=== PATIENT | male | born 1980 | race Caucasian/White ===

== ENCOUNTER 2017-03-06 12:51 | Emergency (ER) | payer OTHER ==
[~2017-03-06] VITALS: Ht 172.7 cm; Wt 78.4 kg
[~2017-03-06 12:51] MED LIST: /ONDA4TA PO; ACET65TA OR; CLARITIN PO; TYL PO
[2017-03-06] MEDS ORDERED: IBUP-1022 PO (12:58)
[2017-03-06] MEDS ORDERED: KETOROLAC 60 MG/2 ML VIAL (J1885) IM ONE (13:45)
[2017-03-06] MEDS ORDERED: VALI10TA PO (14:36)
[2017-03-06] MEDS ORDERED: ULTR50TA8 PO (14:36)
[2017-03-06 14:44] VITALS: BP 135/78
--- NOTE | 2017-03-06 14:56 | REP ---
LEFT HIP, TWO VIEWS: HISTORY: Trauma. The patient is status post left total hip replacement. There is no acute fracture or dislocation. IMPRESSION: The patient is status post left total hip replacement. Signed by Jose Antonio Shah MD 03/06/2017 02:57 P
== END 2017-03-06 15:05 | disposition home or self-care (01) ==
LOC: M ED 13:49
DX: S76.012A Strain of muscle, fascia and tendon of left hip, initial encounter (principal); X50.0XXA Overexertion from strenuous movement or load, initial encounter; Y92.009 Unspecified place in unspecified non-institutional (private) residence as the place of occurrence of the external cause; Y93.89 Activity, other specified; Y99.8 Other external cause status; J45.909 Unspecified asthma, uncomplicated; J44.9 Chronic obstructive pulmonary disease, unspecified; Z96.642 Presence of left artificial hip joint; F17.210 Nicotine dependence, cigarettes, uncomplicated; Z88.5 Allergy status to narcotic agent

== ENCOUNTER → 2017-05-27 | Outpatient (CLI) | payer OTHER ==
[~2017-05-27] MED LIST changes: +IBUP-1022 PO; +ULTR50TA8 PO; +VALI10TA PO
--- NOTE | 2017-05-27 12:10 | REP ---
Clinical: Chronic pain and swelling. Technique: AP, lateral, bilateral oblique views of the of the left first digit. Findings: Mild age-related changes at the metacarpal phalangeal joint include subtle subchondral sclerosis and cortical irregularity. Oblique and lateral views best demonstrates soft tissue swelling suggested underlying the distal phalanx without subcutaneous emphysema or radiodense foreign body. No acute fracture or dislocation. Impression: 1. Age-related changes at the MCP joint. 2. Cannot exclude mild swelling underlying the distal phalanx without subcutaneous emphysema or foreign body identified. Signed by Pierre Medrano MD 05/27/2017 12:01 P
== END ==
LOC: M RAD 11:31
PROVIDERS: ATTEND Physician Assistant Medical
DX: M18.12 Unilateral primary osteoarthritis of first carpometacarpal joint, left hand (principal)

== ENCOUNTER 2017-08-29 01:04 | Observation (INO) | payer OTHER ==
[~2017-08-29] VITALS: Ht 175.3 cm; Wt 68.0 kg
[2017-08-29] MEDS ORDERED: HALOPERIDOL 5 MG/ML VIAL (J1630) IV STA (02:14)
[2017-08-29] MEDS ORDERED: diphenhydrAMINE INJ 50MG/ML VIAL (J1200) IV STA (02:14)
[2017-08-29] MEDS ORDERED: NS 1,000 ML IV ONE (02:15)
[2017-08-29] MEDS ORDERED: KETOROLAC 30 MG/ML VIAL (J1885) IV ONE (02:15)
[2017-08-29 02:26] LABS: BASO # 0.1 10^3/uL (0.0-0.2); BASO % 0.4 % (0.0-1.0); EOS # 0.1 10^3/uL (0.0-0.50); EOS % 0.5 % (0.0-3.0); IMMATURE GRANULOCYTE % 0.6 % (0-0); LYMPH % 9.9 % (24.0-44.0); MEAN CORPUSCULAR HEMOGLOBIN 31.9 pg (27.0-33.0); MEAN CORPUSCULAR HGB CONC 35.4 g/dl (32.0-36.5); MEAN CORPUSCULAR VOLUME 90.4 fl (80.0-96.0); MONO # 0.8 10^3/uL (0.0-0.8); MONO % 3.9 % (0.0-5.0); NEUTROPHILS # 16.9 10^3/uL (1.8-7.7); NEUTROPHILS % 84.7 % (36.0-66.0); PLATELET COUNT, AUTOMATED 215 10^3/uL (150-450); RED CELL DISTRIBUTION WIDTH 11.8 % (11.5-14.5); WHITE BLOOD COUNT 19.9 10^3/uL (4.0-10.0)
[2017-08-29 02:58] LABS: ALBUMIN 4.1 GM/DL (3.2-5.2); ALBUMIN/GLOBULIN RATIO 1.41 (1.00-1.93); ALKALINE PHOSPHATASE 65 U/L (45-117); ALT/SGPT 25 U/L (12-78); ANION GAP 11 MEQ/L (8-16); AST/SGOT 27 U/L (7-37); BILIRUBIN,DIRECT 0.1 MG/DL (0.0-0.2); BILIRUBIN,TOTAL 0.6 MG/DL (0.2-1.0); BLOOD UREA NITROGEN 8 MG/DL (7-18); CALCIUM LEVEL 9.2 MG/DL (8.5-10.1); CARBON DIOXIDE LEVEL 23 MEQ/L (21-32); CHLORIDE LEVEL 106 MEQ/L (98-107); CREATININE FOR GFR 0.82 MG/DL (0.70-1.30); GLOMERULAR FILTRATION RATE > 60.0 (>60); GLUCOSE, FASTING 106 MG/DL (70-105); POTASSIUM SERUM 3.9 MEQ/L (3.5-5.1); SODIUM LEVEL 140 MEQ/L (136-145)
[2017-08-29] MEDS ORDERED: TAMSULOSIN 0.4 MG CAP PO ONE (03:00)
--- NOTE | 2017-08-29 04:00 | REPUSA ---
CLINICAL HISTORY: Abdominal pain. TECHNIQUE: Multiple axial, sagittal and coronal CT images were obtained through the abdomen and pelvi s without administration of oral or IV contrast material. COMMENTS: Comparison to prior exam performed on 08/27/2015. 4 mm obstructing stone of the left ureter at L4 level. Mild left hydroureteronephrosis. Not present o n prior exam. Bilateral nonobstructing renal stones ranging between 2 and 5 mm. Not present on prior exam. The liver is of uniform attenuation without mass or defect. There is no intra or extrahepatic biliary ductal dilatation. The spleen is normal. The gallbladder is within normal limits. The pancreas is of normal contour and attenuation characteristics. There is no evidence of adrenal mass. There is no evidence for appendicitis. There is no bowel wall thickening. No evidence for small or la rge bowel obstruction. There is no evidence of abdominal ascites or lymphadenopathy. There is no evidence of intrinsic or extrinsic bladder mass. There is no pelvic ascites or lymphadeno justyna. Left hip arthroplasty. Metallic prosthesis is in good position. Images of the lung bases show no evidence of pleural or parenchymal mass. There are no pleural effusi ons. The bony structures are free of lytic or blastic lesions. IMPRESSION: Comparison to prior exam performed on 08/27/2015. 4 mm obstructing stone of the left ureter at L4 level. Mild left hydroureteronephrosis. Not present o n prior exam. Bilateral nonobstructing renal stones ranging between 2 and 5 mm. Not present on prior exam. Thank you for your kind referral of this patient.
[2017-08-29] MEDS ORDERED: HYDROmorphone HCL 1 MG/ML SYRINGE (J1170) IV ONE (04:15)
[2017-08-29] MEDS ORDERED: CIPROFLOXACIN 400 MG in APPROPRIATE DILUENT 1 EA IV ONE (04:15)
[2017-08-29] MEDS ORDERED: METOCLOPRAMIDE INJ 10MG/2ML VIAL (J2765) IV PRN (06:30)
[2017-08-29] MEDS ORDERED: D5W/0.9% SODIUM CHLORIDE 1,000 ML IV SCH (06:30)
[2017-08-29] MEDS ORDERED: D5W/0.45% SODIUM CHLORIDE 1,000 ML IV SCH (08:12)
[2017-08-29] MEDS ORDERED: HYDROmorphone HCL 1 MG/ML SYRINGE (J1170) IV PRN (08:15)
[2017-08-29 08:30] VITALS: BP 128/73
[2017-08-29] MEDS: D5W/0.45% SODIUM CHLORIDE 1,000 ML IV SCH ×3 (08:45→22:00)
[2017-08-29] MEDS ORDERED: TAMSULOSIN 0.4 MG CAP PO SCH (09:00)
[2017-08-29] MEDS: ONDANSETRON 4MG/2ML VIAL (J2405) IV PRN (09:35)
[2017-08-29] MEDS: KETOROLAC 30 MG/ML VIAL (J1885) IV PRN ×2 (09:36→17:57)
[2017-08-29] MEDS: HYDROmorphone HCL 1 MG/ML SYRINGE (J1170) IV PRN ×4 (11:48→23:53)
--- NOTE | 2017-08-29 12:06 | REP ---
REASON FOR EXAM: History of renal calculi. COMPARISON: 09/06/2015. FINDINGS: KUB shows the intestinal gas pattern to be nonspecific. The organ silhouettes insofar as delineated are unremarkable. There is no evidence of free intraperitoneal air. There is a calcification seen lateral to the superior aspect of the L3 vertebral body on the left. This could represent an intraureteral calculus. It was not present on the prior exam. IMPRESSION: Nonspecific. Signed by Arie Boyd DO 08/29/2017 09:46 A
[2017-08-29 16:00] VITALS: BP 138/82
[2017-08-29 19:03] VITALS: BP 138/71
[2017-08-29 22:00] VITALS: BP 112/68
[2017-08-30] VITALS (7 sets, daily range): BP systolic 120–161; BP diastolic 59–80
[2017-08-30] MEDS: KETOROLAC 30 MG/ML VIAL (J1885) IV PRN ×3 (01:50→15:23)
[2017-08-30] MEDS: HYDROmorphone HCL 1 MG/ML SYRINGE (J1170) IV PRN ×5 (04:39→17:32)
[2017-08-30] MEDS: D5W/0.45% SODIUM CHLORIDE 1,000 ML IV SCH ×4 (04:39→22:46)
[2017-08-30] MEDS ORDERED: D5W/0.45% SODIUM CHLORIDE 1,000 ML IV SCH (08:11)
[2017-08-30] MEDS: TAMSULOSIN 0.4 MG CAP PO SCH (08:42)
[2017-08-30] MEDS: ONDANSETRON 4MG/2ML VIAL (J2405) IV PRN (08:42)
--- NOTE | 2017-08-30 12:31 | HPE ---
DATE OF ADMISSION: 08/29/2017 REASON FOR ADMISSION: 4 mm left ureteral stone with hydronephrosis and unremitting pain despite pain medication in the emergency room. HISTORY OF PRESENT ILLNESS: The patient is a 37-year-old gentleman who comes to the emergency room after having severe left hip pain when he had slipped on the ice. Originally, he thought that he hurt his hip only, but the pain began radiating up his back. He began having left upper back pain with vomiting and chills with teeth chattering. A CT scan of the abdomen and pelvis was done on 08/29/2017 and this showed a 4 mm obstructing stone in the left ureter at the L4 level with mild left hydroureteronephrosis. He also had bilateral nonobstructing renal stones ranging from 2 to 5 mm. His white blood count was elevated at 19.9 , but he was afebrile and a urinalysis (UA) showed no white blood cells. The patient did have a history of a kidney stone when he was 12 years of age but , has not had any stones since. He has had problems with urinary urgency and urge incontinence now for many years. He only voids three times during the day and normally does not have significant nocturia. He does drink one to two cups of coffee in the morning. He does not always feel like he empties his bladder completely. He has never wet the bed and he denies any neurologic symptoms such as tingling, loss of balance, weakness or anything else. A neurologic review was completely normal. PAST MEDICAL HISTORY: Allergic rhinitis. PAST SURGICAL HISTORY: 1. Left knee surgery in 2001. 2. Left hip replacement. 3. Arthroscopic knee surgery in 2014. 4. Inguinal hernia repair in 2016. MEDICATIONS: He does not take any medications at home. ALLERGIES: - MORPHINE causes a headache, but he has been getting hydromorphone without any problems SOCIAL HISTORY: He smokes a half pack of cigarettes a day. He has a girlfriend who he lives with. He drinks alcohol rarely. FAMILY HISTORY: His father has diabetes and high blood pressure with heart disease and his mother has diabetes and a history of melanoma. PHYSICAL EXAMINATION: He is afebrile. His blood pressure is 136/74. His pulse is 67. He is alert and oriented times three. His head is normocephalic, atraumatic. His trachea is midline. He has no significant supraclavicular or cervical adenopathy. His heart has a regular rate and rhythm. His lungs are clear to auscultation and percussion. He has no true costovertebral angle (CVA) tenderness today. He does have point tenderness on his back on the lower back towards midline, which is a muscle in spasm. His extremities show no cyanosis, clubbing or edema. LABORATORY DATA: White blood count is elevated at 19.9. His hemoglobin and hematocrit (H and H) is 14.6/41.3. His BUN is 8 and his creatinine is 0.2. His glucose is 106. A CT scan of the abdomen and pelvis on 08/29/2017 showed a 4 mm obstructing stone in the left ureter at the L4 level with mild left hydronephrosis. There are bilateral nonobstructing renal stones ranging from 2-5 mm that had not been present on a prior exam. There were no other significant abnormalities appreciated. DISCUSSION: I discussed these findings with Jose. At this point, they do not believe that his left hip is an issue. He has been able to walk without any problems and feels that it is not left hip pain. He has received multiple courses of Dilaudid in the emergency room and is still unable to tolerate the pain well, although when I see him he seems extremely comfortable. After discussing all different options, alternatives, risks, and benefits, it was decided to admit him for IV hydration, pain management, and to see whether he is able to pass the stone spontaneously. We discussed that if the pain continues and he is unable to pass the stone, that we will plan on bringing him to the operating room tomorrow, and he is in agreement with this. We discussed if we go to the operating room we will plan cystoscopy, left ureteroscopy, left stone manipulation with either laser and/or a stone basket, and the placement of a left ureteral stent. We discussed exactly how this is done and what to expect both pre and post procedurally. We discussed that the stent will need to be removed. At this point, we will wait on getting consent. IMPRESSION: 1. Left mid ureteral stone with severe unremitting pain despite Dilaudid. 2. Urinary urgency and urge incontinence for many years with a negative Neurologic ROS of ? etiology 3. Left back spasm after a fall on the ice in a patient with a left hip replacement, but he denies any significant left hip pain at this time. 4. Smoker, but no other significant medical history. PLAN: Admit for observation status and continue IV hydration, pain medication, and antinausea medication. If he is unable to pass the stone spontaneously, we will plan on going to the operating room tomorrow for surgical management. -Check PVR -Pt will need outpatient f/u for urinary urgency and urge incontinence. Some behavioral things discussed. YRIS
[2017-08-30] MEDS ORDERED: ceFAZolin 2 GM/D5W 50 ML IV BAG (J0690 PER 500MG) As Ordered ONE (19:02)
[2017-08-30] MEDS ORDERED: CONRAY-60 60% 50ML VIAL (Q9961) As Ordered ONE (19:02)
[2017-08-30] MEDS ORDERED: dexameTHASONE 4 MG/ML 1ML VIAL (J1100) As Ordered ONE (19:22)
[2017-08-30] MEDS ORDERED: ONDANSETRON 4MG/2ML VIAL (J2405) As Ordered ONE (19:22)
[2017-08-30] MEDS ORDERED: PROPOFOL 200 MG/20 ML VIAL As Ordered ONE (19:22)
[2017-08-30] MEDS ORDERED: fentaNYL 250 MCG/5 ML INJECTION (J3010) As Ordered ONE (19:22)
[2017-08-30] MEDS ORDERED: MIDAZOLAM INJ 2 MG/2 ML VIAL (J2250) As Ordered ONE (19:22)
[2017-08-30] MEDS ORDERED: ETOMIDATE INJ 20MG/10ML VIAL As Ordered ONE (20:14)
[2017-08-30] MEDS ORDERED: fentaNYL 100 MCG/2 ML INJECTION (J3010) As Ordered ONE ×2 (20:55→20:56)
[2017-08-30] MEDS ORDERED: OXYC1TAB23 PO (21:36)
[2017-08-30] MEDS ORDERED: PHEN-500 PO (21:36)
[2017-08-30] MEDS ORDERED: LR 1,000 ML IV SCH (21:45)
[2017-08-30] MEDS ORDERED: METOCLOPRAMIDE INJ 10MG/2ML VIAL (J2765) IV PRN (21:45)
[2017-08-30] MEDS ORDERED: PERCOCET 5MG/325MG TAB PO PRN (21:45)
[2017-08-30] MEDS ORDERED: ONDANSETRON 4MG/2ML VIAL (J2405) IV PRN (21:45)
[2017-08-30] MEDS ORDERED: MEPERIDINE INJ 25 MG/ML VIAL (J2175) IV PRN (21:45)
[2017-08-30] MEDS ORDERED: fentaNYL 100 MCG/2 ML INJECTION (J3010) IV PRN (21:45)
[2017-08-30] MEDS ORDERED: PERCOCET 5MG/325MG TAB As Ordered ONE (21:49)
[2017-08-30] MEDS: PHENAZOPYRIDINE 100 MG TAB PO SCH (22:46)
[2017-08-30] MEDS: PERCOCET 5MG/325MG TAB PO PRN (23:14)
[2017-08-31 00:30] VITALS: BP 138/74
[2017-08-31] MEDS: KETOROLAC 30 MG/ML VIAL (J1885) IV PRN ×2 (00:40→06:45)
[2017-08-31 01:30] VITALS: BP 119/70
[2017-08-31 02:30] VITALS: BP 132/78
[2017-08-31 03:30] VITALS: BP 125/89
[2017-08-31] MEDS: PERCOCET 5MG/325MG TAB PO PRN ×2 (05:02→09:11)
[2017-08-31] MEDS: D5W/0.45% SODIUM CHLORIDE 1,000 ML IV SCH (05:07)
[2017-08-31 06:00] VITALS: BP 130/70
[2017-08-31] MEDS: TAMSULOSIN 0.4 MG CAP PO SCH (08:52)
[2017-08-31] MEDS: PHENAZOPYRIDINE 100 MG TAB PO SCH (08:52)
[2017-08-31] MEDS ORDERED: INFLUENZA QUADRIVALENT PF VACCINE 0.5ML SYRINGE (90686) IM ONE (09:00)
[2017-08-31 10:00] VITALS: BP 118/70
--- NOTE | 2017-08-31 11:54 | RO ---
DATE OF PROCEDURE: 08/30/2017 PREOPERATIVE DIAGNOSIS: Left ureteral stone. POSTOPERATIVE DIAGNOSIS: Left ureteral stone. PROCEDURE: Cystoscopy, left ureteroscopy, left laser lithotripsy and left ureteral stent placement. SURGEON: Dr. Makenzie Panda SERVICE ATTENDANT: ANESTHESIA: General. MEDICATIONS: Ancef 2 grams preoperatively. DRAINS: #7-Thai universal double-J ureteral stent. FINDINGS: Stone was pushed into the lower pole calyx of the kidney, laser lithotripsy was done. INDICATIONS FOR PROCEDURE: The patient is a 37-year-old gentleman who was found to have a left 4 mm ureteral stone at L3. He required hospitalization for pain management but continued to have pain and was unable to pass the stone. At this point, it was decided to bring him to the operating room for further surgical management. All different options, alternatives, risks, and benefits were discussed and informed consent was obtained. Informed consent was obtained in both verbal and written form. DESCRIPTION OF PROCEDURE: The patient was brought into the operating room. Sequential compression devices were in place and general anesthesia was induced. He was placed in the lithotomy position and careful attention was paid that his pressure points were well padded and protected. He was prepped and draped in the usual fashion. Next a #21-Thai rigid cystoscope was inserted. The urethra was noted to be open without any evidence of lesions or strictures. Prostatic urethra did not show obstruction. Upon entering the bladder, both ureteral orifices were seen. There was no evidence of stones, erythematous patches, lesions or other significant abnormalities. At this point, I attempted to place a wire in the left ureteral orifice, but it would not go far because it felt like the stone was there. A retrograde pyelogram was then done and it did show that the stone was stuck in the distal ureter. I then placed a rigid ureteroscope and the stone unfortunately popped all the way back up into the kidney. I was then able to place a wire and used this as a safety and then a second wire. I went in with a flexible ureteroscope and found the stone in a lower pole calyx. I was able use laser lithotripsy and break this into at least three different small fragments. At this point, I a attempted to place a #6-Thai Crawford stent, but I was having difficulty placing it over the wire and we could not find a 0.035 guidewire so I increased the stent size to a #7-Thai and finally was able to get this over the wire. The stent was seen up in the left collecting system and down in the bladder. The patient tolerated the procedure well and was returned to the recovery room in stable condition.
--- NOTE | 2017-09-01 01:10 | ECGEPIP ---
Stationary ECG Study [facility] Test Date: 2017-08-29 Pat Name: SUSHMA CESPEDES Department: Room: [place] [address] Gender: M Fish Packer: AYAN : 1980 Requested By: GAIL Flores Order Number: [id number] Reading MD: Kamar Wick Measurements Intervals [place] Rate: 60 P: 76 NJ: 164 QRS: 61 QRSD: 82 T: 63 QT: 432 QTc: 433 Interpretive Statements SINUS RHYTHM WITH SINUS ARRHYTHMIA No prior tracing in the system Electronically Signed On 09-01-2017 1:09:47 EST by Kamar Wick
== END 2017-08-31 11:31 | disposition home or self-care (01) ==
LOC: M ED 01:04 → M ED INP 01:05 → M PED 08:30 → M MSPAV 18:20
PROVIDERS: ADMIT Specialist; ATTEND Specialist
DX: N13.2 Hydronephrosis with renal and ureteral calculous obstruction (principal); M62.830 Muscle spasm of back; M25.552 Pain in left hip; N39.41 Urge incontinence; F17.210 Nicotine dependence, cigarettes, uncomplicated; Z88.5 Allergy status to narcotic agent; Z23 Encounter for immunization
CPT/HCPCS: 52356; 74000; 74176; 74420; 80048; 80076; 81001; 83690; 85025; 87086; 90686; 93000; 99284; C1758; C1769; C1894; C2617; J0690; J0744; J1100; J1170; J1200; J1630; J1885; J2250; J2405; J3010; Q9961

== ENCOUNTER 2017-09-10 16:24 | Emergency (ER) | payer OTHER ==
[~2017-09-10] VITALS: Ht 175.3 cm; Wt 65.9 kg
[~2017-09-10 16:24] MED LIST changes: +OXYC1TAB23 PO; +PHEN-500 PO
[2017-09-10] MEDS ORDERED: CIPR-249 PO (16:38)
[2017-09-10] MEDS ORDERED: ONDANSETRON 4MG/2ML VIAL (J2405) IV ONE (17:00)
[2017-09-10] MEDS ORDERED: KETOROLAC 30 MG/ML VIAL (J1885) IV ONE (17:00)
[2017-09-10 17:03] LABS: BASO # 0.1 10^3/uL (0.0-0.2); BASO % 0.6 % (0.0-1.0); EOS # 0.2 10^3/uL (0.0-0.50); EOS % 1.6 % (0.0-3.0); IMMATURE GRANULOCYTE % 0.4 % (0-0); LYMPH % 22.2 % (24.0-44.0); MEAN CORPUSCULAR HEMOGLOBIN 31.4 pg (27.0-33.0); MEAN CORPUSCULAR HGB CONC 34.4 g/dl (32.0-36.5); MEAN CORPUSCULAR VOLUME 91.4 fl (80.0-96.0); MONO % 7.3 % (0.0-5.0); NEUTROPHILS # 9.2 10^3/uL (1.8-7.7); NEUTROPHILS % 67.9 % (36.0-66.0); PLATELET COUNT, AUTOMATED 357 10^3/uL (150-450); RED CELL DISTRIBUTION WIDTH 12.5 % (11.5-14.5); WHITE BLOOD COUNT 13.5 10^3/uL (4.0-10.0)
[2017-09-10 17:30] LABS: ANION GAP 8 MEQ/L (8-16); BLOOD UREA NITROGEN 10 MG/DL (7-18); CALCIUM LEVEL 9.2 MG/DL (8.5-10.1); CARBON DIOXIDE LEVEL 29 MEQ/L (21-32); CHLORIDE LEVEL 106 MEQ/L (98-107); CREATININE FOR GFR 0.77 MG/DL (0.70-1.30); GLOMERULAR FILTRATION RATE > 60.0 (>60); GLUCOSE, FASTING 99 MG/DL (70-105); POTASSIUM SERUM 4.1 MEQ/L (3.5-5.1); SODIUM LEVEL 143 MEQ/L (136-145)
[2017-09-10] MEDS ORDERED: NS 1,000 ML IV ONE (18:00)
--- NOTE | 2017-09-10 18:48 | REP ---
RENAL ULTRASOUND: Real-time sonographic evaluation of the kidneys are performed and demonstrates both kidneys to be normal in size and echotexture, right kidney measuring 12.4 x 5.6 x 3.4 cm and left kidney 13.4 x 4.9 x 6.7 cm. There is no hydronephrosis on the right. There is mild hydronephrosis on the left. I see no other significant abnormalities. Urinary bladder is not distended and not evaluated. IMPRESSION: Mild left hydronephrosis. Signed by Blanco Moran MD 09/10/2017 08:45 P
[2017-09-10 18:59] LABS: MUCUS, URINE RFX LARGE (NEGATIVE); SQUAM EPITHELIAL CELL UR AURFX 0 /HPF (0-6)
[2017-09-10] MEDS: HYDROmorphone HCL 1 MG/ML SYRINGE (J1170) IV PRN ×2 (19:04→20:25)
--- NOTE | 2017-09-10 20:00 | REPUSA ---
CT of the abdomen and pelvis without contrast Clinical statement: Pain. Technique: Multiple axial CT images were obtained from the base of the lungs to the floor of the pelv is utilizing 5 mm axial slices without administration of contrast. Coronal and sagittal reconstructio ns were also obtained. Comparison: 08/29/2017. Findings: Chest: The visualized lung bases are clear. Abdomen: The kidneys are normal in size bilaterally. There is no significant change in moderate left- sided hydronephrosis and hydroureter. A 4 mm stone remains in the left ureterovesical junction. Tiny nonobstructing stones are seen in the kidneys bilaterally as well. The liver, spleen, pancreas, gallb ladder and adrenal glands are unremarkable. The aorta demonstrates normal caliber and contour. There is no abdominal lymphadenopathy or ascites. Pelvis: The bowel is unremarkable, with no obstructive or inflammatory changes. The urinary bladder i s within normal limits. There is no pelvic lymphadenopathy or ascites. The other pelvic structures ap pear unremarkable. Bones: There are no suspicious osseous abnormalities seen. The left hip arthroplasty is intact. Impression: No significant change in left-sided hydronephrosis and hydroureter. 4 mm obstructing ston e remains at the left ureterovesical junction.
[2017-09-10] MEDS ORDERED: PERC5TAB12 PO (20:25)
[2017-09-10] MEDS ORDERED: ZOFR4TAB3 PO (20:25)
[2017-09-10] MEDS ORDERED: FLOM5CAP PO (20:25)
[2017-09-10] MEDS ORDERED: PERCOCET 5MG/325MG TAB PO ONE (20:30)
[2017-09-10] MEDS ORDERED: TAMSULOSIN 0.4 MG CAP PO ONE (20:30)
[2017-09-10] MEDS ORDERED: ONDANSETRON 4 MG ORAL DISINTEGRATING TAB (S0181) PO ONE (20:30)
[2017-09-10 20:36] VITALS: BP 133/86
== END 2017-09-10 20:37 | disposition home or self-care (01) ==
LOC: M ED 16:24
DX: N13.2 Hydronephrosis with renal and ureteral calculous obstruction (principal); J45.909 Unspecified asthma, uncomplicated; F17.210 Nicotine dependence, cigarettes, uncomplicated; Z79.2 Long term (current) use of antibiotics; Z87.442 Personal history of urinary calculi; Z98.890 Other specified postprocedural states; Z88.5 Allergy status to narcotic agent
CPT/HCPCS: 36415; 74176; 76775; 80048; 81001; 85025; 86140; 87086; 96374; 96375; 96376; 99284; J1170; J1885; J2405

== ENCOUNTER 2017-09-11 22:31 | Emergency (ER) | payer OTHER ==
[~2017-09-11] VITALS: Ht 175.3 cm; Wt 63.6 kg
[~2017-09-11 22:31] MED LIST changes: +CIPR-249 PO; +FLOM5CAP PO; +PERC5TAB12 PO; +ZOFR4TAB3 PO
[2017-09-11] MEDS ORDERED: KETOROLAC 30 MG/ML VIAL (J1885) IV ONE (23:15)
[2017-09-11] MEDS ORDERED: NS 1,000 ML IV ONE (23:15)
[2017-09-11] MEDS ORDERED: HYDROmorphone HCL 1 MG/ML SYRINGE (J1170) IV PRN (23:15)
[2017-09-11] MEDS ORDERED: ONDANSETRON 4MG/2ML VIAL (J2405) IV ONE (23:15)
[2017-09-11 23:34] LABS: BASO # 0.1 10^3/uL (0.0-0.2); BASO % 0.5 % (0.0-1.0); EOS # 0.3 10^3/uL (0.0-0.50); EOS % 2.6 % (0.0-3.0); IMMATURE GRANULOCYTE % 0.5 % (0-0); LYMPH # 3.1 10^3/uL (1.5-4.5); LYMPH % 23.3 % (24.0-44.0); MEAN CORPUSCULAR HEMOGLOBIN 32.4 pg (27.0-33.0); MEAN CORPUSCULAR HGB CONC 34.7 g/dl (32.0-36.5); MEAN CORPUSCULAR VOLUME 93.6 fl (80.0-96.0); MONO # 0.8 10^3/uL (0.0-0.8); MONO % 6.3 % (0.0-5.0); NEUTROPHILS # 8.8 10^3/uL (1.8-7.7); NEUTROPHILS % 66.8 % (36.0-66.0); PLATELET COUNT, AUTOMATED 287 10^3/uL (150-450); RED CELL DISTRIBUTION WIDTH 12.2 % (11.5-14.5); WHITE BLOOD COUNT 13.2 10^3/uL (4.0-10.0)
[2017-09-11 23:45] LABS: MUCUS, URINE RFX SMALL (NEGATIVE); SQUAM EPITHELIAL CELL UR AURFX 0 /HPF (0-6)
[2017-09-11 23:58] LABS: ALBUMIN/GLOBULIN RATIO 1.43 (1.00-1.93); ALKALINE PHOSPHATASE 78 U/L (45-117); ALT/SGPT 20 U/L (12-78); ANION GAP 6 MEQ/L (8-16); AST/SGOT 10 U/L (7-37); BILIRUBIN,DIRECT 0.1 MG/DL (0.0-0.2); BILIRUBIN,TOTAL 0.4 MG/DL (0.2-1.0); BLOOD UREA NITROGEN 13 MG/DL (7-18); CALCIUM LEVEL 8.7 MG/DL (8.5-10.1); CARBON DIOXIDE LEVEL 29 MEQ/L (21-32); CHLORIDE LEVEL 107 MEQ/L (98-107); CREATININE FOR GFR 0.81 MG/DL (0.70-1.30); GLOMERULAR FILTRATION RATE > 60.0 (>60); GLUCOSE, FASTING 99 MG/DL (70-105); POTASSIUM SERUM 4.5 MEQ/L (3.5-5.1); SODIUM LEVEL 142 MEQ/L (136-145); TOTAL PROTEIN 6.8 GM/DL (6.4-8.2)
--- NOTE | 2017-09-12 00:50 | REPUSA ---
CLINICAL HISTORY: Renal colic. TECHNIQUE: Realtime sonographic images were obtained in multiple projections. COMMENTS: The right kidney measures 11.6x5.6x3.6 cm and the left kidney measures 13.4x5.5x5.8 cm. The right ki dney is free of hydronephrosis. Mild left hydronephrosis. There is no evidence of solid or cystic mas s. There is no perinephric fluid. There is no renal calculus. Bladder volume 104 CC. IMPRESSION: Mild left hydronephrosis. Thank you for your kind referral of this patient.
[2017-09-12] MEDS ORDERED: KETO10TAB PO (01:54)
[2017-09-12] MEDS ORDERED: OXYC1TAB15 PO (01:54)
[2017-09-12 02:19] VITALS: BP 133/82
== END 2017-09-12 02:21 | disposition home or self-care (01) ==
LOC: M ED 22:31
DX: N20.1 Calculus of ureter (principal); F17.210 Nicotine dependence, cigarettes, uncomplicated; Z79.899 Other long term (current) drug therapy; Z88.5 Allergy status to narcotic agent; Z98.890 Other specified postprocedural states; Z87.442 Personal history of urinary calculi
CPT/HCPCS: 76775; 80048; 80076; 81001; 83690; 85025; 96374; 96375; 99284; J1170; J1885; J2405

== ENCOUNTER → 2017-09-15 | Outpatient (REF) | payer OTHER ==
[~2017-09-15] MED LIST changes: +KETO10TAB PO; +OXYC1TAB15 PO
== END ==
LOC: M SMT 12:39
PROVIDERS: ATTEND Nurse Practitioner Family
DX: N20.0 Calculus of kidney (principal)

== ENCOUNTER → 2017-10-05 | Outpatient (REF) | payer OTHER ==
[2017-10-05 20:53] LABS: APPEARANCE, URINE HAZY (CLEAR); BACTERIA, URINE AUTO NEGATIVE (NEGATIVE); BILIRUBIN, URINE AUTO NEGATIVE (NEGATIVE); BLOOD, URINE BLOOD NEGATIVE (NEGATIVE); COLOR, URINE YELLOW (YELLOW); GLUCOSE, URINE (UA) AUTO NEGATIVE (NEGATIVE); KETONE, URINE AUTO NEGATIVE (NEGATIVE); LEUKOCYTE ESTERASE, URINE AUTO NEGATIVE (NEGATIVE); MUCUS, URINE SMALL (NEGATIVE); NITRITE, URINE AUTO NEGATIVE (NEGATIVE); PROTEIN, URINE AUTO NEGATIVE (NEGATIVE); RBC, URINE AUTO 0 /HPF (0-3); SPECIFIC GRAVITY URINE AUTO 1.024 (1.002-1.035); SQUAMOUS EPITHELIAL CELL UR AU 0 /HPF (0-6); UROBILINOGEN, URINE AUTO 0.2 mg/dL (0.0-2.0); WBC, URINE AUTO 1 /HPF (0-3)
== END ==
LOC: M SMT 17:06
DX: N13.2 Hydronephrosis with renal and ureteral calculous obstruction (principal)

== ENCOUNTER 2017-10-17 11:08 | Emergency (ER) | payer OTHER ==
[2017-10-17] MEDS: KETOROLAC 30 MG/ML VIAL (J1885) IV (11:48)
[2017-10-17 11:55] LABS: BASO # 0.1 10^3/uL (0.0-0.2); BASO % 0.5 % (0.0-1.0); EOS # 0.1 10^3/uL (0.0-0.50); EOS % 0.9 % (0.0-3.0); HEMATOCRIT 42.3 % (42.0-52.0); HEMOGLOBIN 14.8 g/dl (14.0-18.0); IMMATURE GRANULOCYTE # 0.1 10^3/uL (0-0); IMMATURE GRANULOCYTE % 0.5 % (0-0); LYMPH % 16.7 % (24.0-44.0); MEAN CORPUSCULAR HEMOGLOBIN 31.7 pg (27.0-33.0); MEAN CORPUSCULAR VOLUME 90.6 fl (80.0-96.0); MONO # 0.6 10^3/uL (0.0-0.8); MONO % 5.3 % (0.0-5.0); NEUTROPHILS # 9.2 10^3/uL (1.8-7.7); NEUTROPHILS % 76.1 % (36.0-66.0); PLATELET COUNT, AUTOMATED 224 10^3/uL (150-450); RED BLOOD COUNT 4.67 10^6/uL (4.30-6.10); RED CELL DISTRIBUTION WIDTH 12.2 % (11.5-14.5); WHITE BLOOD COUNT 12.1 10^3/uL (4.0-10.0)
[2017-10-17 11:58] LABS: KETONE, URINE AUTO RFX NEGATIVE (NEGATIVE); LEUKOCYTE ESTERASE UR AUTO RFX NEGATIVE (NEGATIVE); NITRITE, URINE AUTO RFX NEGATIVE (NEGATIVE); RBC, URINE AUTO RFX 0 /HPF (0-3); SPECIFIC GRAVITY UR AUTO RFX 1.011 (1.002-1.035); SQUAM EPITHELIAL CELL UR AURFX 0 /HPF (0-6); WBC, URINE AUTO RFX 0 /HPF (0-3)
[2017-10-17 12:21] LABS: ANION GAP 5 MEQ/L (8-16); BLOOD UREA NITROGEN 10 MG/DL (7-18); CALCIUM LEVEL 8.7 MG/DL (8.5-10.1); CARBON DIOXIDE LEVEL 26 MEQ/L (21-32); CHLORIDE LEVEL 111 MEQ/L (98-107); CREATININE FOR GFR 0.69 MG/DL (0.70-1.30); GLOMERULAR FILTRATION RATE > 60.0 (>60); GLUCOSE, FASTING 96 MG/DL (70-100); POTASSIUM SERUM 4.6 MEQ/L (3.5-5.1); SODIUM LEVEL 142 MEQ/L (136-145)
== END 2017-10-17 12:50 | disposition home or self-care (01) ==
LOC: M ED 11:08
DX: R10.9 Unspecified abdominal pain (principal); F17.210 Nicotine dependence, cigarettes, uncomplicated; Z79.2 Long term (current) use of antibiotics; Z79.899 Other long term (current) drug therapy; Z88.5 Allergy status to narcotic agent; Z87.442 Personal history of urinary calculi; Z98.890 Other specified postprocedural states
CPT/HCPCS: J1885

== ENCOUNTER 2017-10-26 12:49 | Emergency (ER) | payer OTHER ==
[2017-10-26] MEDS: KETOROLAC 60 MG/2 ML VIAL (J1885) IM (16:45)
== END 2017-10-26 17:25 | disposition home or self-care (01) ==
LOC: M ED 12:49
DX: N23 Unspecified renal colic (principal); J45.909 Unspecified asthma, uncomplicated; F17.210 Nicotine dependence, cigarettes, uncomplicated; Z88.5 Allergy status to narcotic agent; Z87.442 Personal history of urinary calculi; Z98.890 Other specified postprocedural states
CPT/HCPCS: J1885

== ENCOUNTER 2017-11-12 20:27 | Emergency (ER) | payer OTHER ==
[2017-11-12] MEDS: NS 1,000 ML IV (21:15)
[2017-11-12] MEDS: ONDANSETRON 4MG/2ML VIAL (J2405) IV (21:15)
[2017-11-12 21:26] LABS: APPEARANCE, URINE HAZY (CLEAR); BACTERIA, URINE AUTO NEGATIVE (NEGATIVE); BILIRUBIN, URINE AUTO NEGATIVE (NEGATIVE); BLOOD, URINE BLOOD NEGATIVE (NEGATIVE); COLOR, URINE AMBER (YELLOW); GLUCOSE, URINE (UA) AUTO NEGATIVE (NEGATIVE); KETONE, URINE AUTO NEGATIVE (NEGATIVE); LEUKOCYTE ESTERASE, URINE AUTO NEGATIVE (NEGATIVE); MUCUS, URINE LARGE (NEGATIVE); NITRITE, URINE AUTO NEGATIVE (NEGATIVE); PROTEIN, URINE AUTO 1+ mg/dL (NEGATIVE); RBC, URINE AUTO 3 /HPF (0-3); SQUAMOUS EPITHELIAL CELL UR AU 0 /HPF (0-6); WBC, URINE AUTO 1 /HPF (0-3)
[2017-11-12 21:33] LABS: BASO # 0.1 10^3/uL (0.0-0.2); BASO % 0.5 % (0.0-1.0); EOS # 0.1 10^3/uL (0.0-0.50); EOS % 0.7 % (0.0-3.0); HEMATOCRIT 44.1 % (42.0-52.0); HEMOGLOBIN 15.6 g/dl (14.0-18.0); IMMATURE GRANULOCYTE % 0.4 % (0-3.0); LYMPH # 3.6 10^3/uL (1.5-4.5); LYMPH % 29.1 % (24.0-44.0); MEAN CORPUSCULAR HEMOGLOBIN 31.7 pg (27.0-33.0); MEAN CORPUSCULAR HGB CONC 35.4 g/dl (32.0-36.5); MEAN CORPUSCULAR VOLUME 89.6 fl (80.0-96.0); MONO % 8.1 % (0.0-5.0); NEUTROPHILS # 7.5 10^3/uL (1.8-7.7); NEUTROPHILS % 61.2 % (36.0-66.0); PLATELET COUNT, AUTOMATED 224 10^3/uL (150-450); RED BLOOD COUNT 4.92 10^6/uL (4.30-6.10); RED CELL DISTRIBUTION WIDTH 12.2 % (11.5-14.5); WHITE BLOOD COUNT 12.2 10^3/uL (4.0-10.0)
[2017-11-12 21:57] LABS: ALBUMIN 4.6 GM/DL (3.2-5.2); ALBUMIN/GLOBULIN RATIO 1.44 (1.00-1.93); ALKALINE PHOSPHATASE 75 U/L (45-117); ALT/SGPT 43 U/L (12-78); ANION GAP 8 MEQ/L (8-16); AST/SGOT 14 U/L (7-37); BILIRUBIN,DIRECT 0.2 MG/DL (0.0-0.2); BLOOD UREA NITROGEN 14 MG/DL (7-18); CALCIUM LEVEL 9.4 MG/DL (8.5-10.1); CARBON DIOXIDE LEVEL 26 MEQ/L (21-32); CHLORIDE LEVEL 109 MEQ/L (98-107); CREATININE FOR GFR 0.68 MG/DL (0.70-1.30); GLOMERULAR FILTRATION RATE > 60.0 (>60); GLUCOSE, FASTING 81 MG/DL (70-100); POTASSIUM SERUM 3.7 MEQ/L (3.5-5.1); SODIUM LEVEL 143 MEQ/L (136-145); TOTAL PROTEIN 7.8 GM/DL (6.4-8.2)
[2017-11-12] MEDS: ONDANSETRON 4 MG ORAL DISINTEGRATING TAB (S0181) PO (22:42)
== END 2017-11-12 23:09 | disposition home or self-care (01) ==
LOC: M ED 20:27
DX: A08.4 Viral intestinal infection, unspecified (principal); A09 Infectious gastroenteritis and colitis, unspecified; F17.200 Nicotine dependence, unspecified, uncomplicated; Z87.442 Personal history of urinary calculi; Z79.899 Other long term (current) drug therapy; Z88.5 Allergy status to narcotic agent
CPT/HCPCS: J2405

== ENCOUNTER 2018-01-18 20:23 | Emergency (ER) | payer OTHER ==
[2018-01-19] MEDS: KETOROLAC 30 MG/ML VIAL (J1885) IV (00:35)
[2018-01-19] MEDS: ONDANSETRON 4MG/2ML VIAL (J2405) IV (00:35)
[2018-01-19] MEDS: NS 1,000 ML IV (00:35)
[2018-01-19 00:49] LABS: BASO % 0.2 % (0.0-1.0); EOS # 0.1 10^3/uL (0.0-0.50); EOS % 0.6 % (0.0-3.0); HEMATOCRIT 42.4 % (42.0-52.0); HEMOGLOBIN 15.2 g/dl (13.5-17.5); IMMATURE GRANULOCYTE % 0.4 % (0-3.0); LYMPH # 1.1 10^3/uL (1.5-4.5); MEAN CORPUSCULAR HEMOGLOBIN 31.9 pg (27.0-33.0); MEAN CORPUSCULAR HGB CONC 35.8 g/dl (32.0-36.5); MEAN CORPUSCULAR VOLUME 89.1 fl (80.0-96.0); MONO # 0.7 10^3/uL (0.0-0.8); MONO % 5.9 % (0.0-5.0); NEUTROPHILS # 10.5 10^3/uL (1.8-7.7); NEUTROPHILS % 83.9 % (36.0-66.0); PLATELET COUNT, AUTOMATED 180 10^3/uL (150-450); RED BLOOD COUNT 4.76 10^6/uL (4.30-6.10); RED CELL DISTRIBUTION WIDTH 11.9 % (11.5-14.5); WHITE BLOOD COUNT 12.5 10^3/uL (4.0-10.0)
[2018-01-19 00:52] LABS: KETONE, URINE AUTO RFX TRACE mg/dL (NEGATIVE); LEUKOCYTE ESTERASE UR AUTO RFX NEGATIVE (NEGATIVE); MUCUS, URINE RFX SMALL (NEGATIVE); NITRITE, URINE AUTO RFX NEGATIVE (NEGATIVE); RBC, URINE AUTO RFX 2 /HPF (0-3); SPECIFIC GRAVITY UR AUTO RFX 1.012 (1.002-1.035); SQUAM EPITHELIAL CELL UR AURFX 0 /HPF (0-6); WBC, URINE AUTO RFX 0 /HPF (0-3)
[2018-01-19 01:11] LABS: ANION GAP 6 MEQ/L (8-16); BLOOD UREA NITROGEN 12 MG/DL (7-18); C REACTIVE PROTEIN QUANTITATIV 1.21 MG/DL (0.00-0.30); CALCIUM LEVEL 8.7 MG/DL (8.5-10.1); CARBON DIOXIDE LEVEL 24 MEQ/L (21-32); CHLORIDE LEVEL 111 MEQ/L (98-107); CREATININE FOR GFR 0.69 MG/DL (0.70-1.30); GLOMERULAR FILTRATION RATE > 60.0 (>60); GLUCOSE, FASTING 92 MG/DL (70-100); POTASSIUM SERUM 3.7 MEQ/L (3.5-5.1); SODIUM LEVEL 141 MEQ/L (136-145)
[2018-01-19] MEDS: PERCOCET 5MG/325MG TAB PO (01:57)
== END 2018-01-19 02:13 | disposition home or self-care (01) ==
LOC: M ED 01-19 02:13
DX: N20.0 Calculus of kidney (principal); J45.909 Unspecified asthma, uncomplicated; Z79.899 Other long term (current) drug therapy; Z88.5 Allergy status to narcotic agent; F17.210 Nicotine dependence, cigarettes, uncomplicated
CPT/HCPCS: J2405

== ENCOUNTER 2018-02-22 21:02 | Emergency (ER) | payer OTHER ==
[2018-02-22] MEDS: LIDOCAINE 2% MDV 20 ML VIAL SC (23:00)
[2018-02-23] MEDS: OXYCODONE/APAP 5MG/325MG(BULK FOR ED) 1 TABLET PO (00:15)
== END 2018-02-23 00:22 | disposition home or self-care (01) ==
LOC: M ED 02-23 00:22
DX: R60.0 Localized edema (principal); J45.909 Unspecified asthma, uncomplicated; F17.210 Nicotine dependence, cigarettes, uncomplicated; Z88.5 Allergy status to narcotic agent
CPT/HCPCS: 73140

== ENCOUNTER → 2018-03-02 | Outpatient (CLI) | payer MEDICAID | LOC: M OUTALCOH 08:50 | DX: F12.20 Cannabis dependence, uncomplicated (principal) ==

== ENCOUNTER 2018-03-08 19:16 | Emergency (ER) | payer OTHER, MEDICAID ==
[2018-03-09] MEDS: BUPIVACAINE HCL 0.5% 30 ML VIAL SC (03:00)
[2018-03-09] MEDS: NORCO 5/325MG TABLET (BULK FOR ED) PO (03:45)
== END 2018-03-09 04:02 | disposition home or self-care (01) ==
LOC: M ED 19:16
DX: L03.012 Cellulitis of left finger (principal); F17.200 Nicotine dependence, unspecified, uncomplicated; Z88.5 Allergy status to narcotic agent
CPT/HCPCS: 26010

== ENCOUNTER → 2018-04-05 | Outpatient (REF) | payer OTHER ==
[2018-04-05 12:36] LABS: BASO # 0.1 10^3/uL (0.0-0.2); BASO % 0.7 % (0.0-1.0); EOS # 0.3 10^3/uL (0.0-0.50); HEMATOCRIT 43.2 % (42.0-52.0); IMMATURE GRANULOCYTE % 0.4 % (0-3.0); LYMPH # 2.2 10^3/uL (1.5-4.5); LYMPH % 29.1 % (24.0-44.0); MEAN CORPUSCULAR HEMOGLOBIN 31.6 pg (27.0-33.0); MEAN CORPUSCULAR HGB CONC 34.7 g/dl (32.0-36.5); MEAN CORPUSCULAR VOLUME 90.9 fl (80.0-96.0); MONO # 0.6 10^3/uL (0.0-0.8); MONO % 7.6 % (0.0-5.0); NEUTROPHILS # 4.4 10^3/uL (1.8-7.7); NEUTROPHILS % 58.2 % (36.0-66.0); PLATELET COUNT, AUTOMATED 179 10^3/uL (150-450); RED BLOOD COUNT 4.75 10^6/uL (4.30-6.10); WHITE BLOOD COUNT 7.5 10^3/uL (4.0-10.0)
[2018-04-05 12:55] LABS: ANION GAP 7 MEQ/L (8-16); BLOOD UREA NITROGEN 10 MG/DL (7-18); CALCIUM LEVEL 8.9 MG/DL (8.5-10.1); CARBON DIOXIDE LEVEL 27 MEQ/L (21-32); CHLORIDE LEVEL 109 MEQ/L (98-107); CREATININE FOR GFR 0.87 MG/DL (0.70-1.30); GLOMERULAR FILTRATION RATE > 60.0 (>60); GLUCOSE, FASTING 112 MG/DL (70-100); POTASSIUM SERUM 4.3 MEQ/L (3.5-5.1); SODIUM LEVEL 143 MEQ/L (136-145)
== END ==
LOC: M LABDRWAD 12:10
DX: M25.152 Fistula, left hip (principal); M25.559 Pain in unspecified hip; Z01.818 Encounter for other preprocedural examination; M76.10 Psoas tendinitis, unspecified hip
CPT/HCPCS: 80048

== ENCOUNTER 2018-04-10 20:37 | Emergency (ER) | payer OTHER ==
[2018-04-10] MEDS: OXYCODONE/APAP 5MG/325MG(BULK FOR ED) 1 TABLET PO ×2 (21:45→22:15)
== END 2018-04-10 22:24 | disposition home or self-care (01) ==
LOC: M ED 20:37
DX: Z76.0 Encounter for issue of repeat prescription (principal); Z98.890 Other specified postprocedural states; F17.200 Nicotine dependence, unspecified, uncomplicated; Z88.5 Allergy status to narcotic agent; Z79.82 Long term (current) use of aspirin
CPT/HCPCS: 99283

== ENCOUNTER 2018-06-04 10:36 | Outpatient (RCR) | payer MEDICAID | END 2018-06-20 | LOC: M OUTALCOH 10:36 | DX: Z03.89 Encounter for observation for other suspected diseases and conditions ruled out (principal) ==

== ENCOUNTER 2018-07-26 10:35 | Emergency (ER) | payer OTHER, MEDICAID ==
[2018-07-26] MEDS: CYCLOBENZAPRINE 10 MG TAB PO (14:00)
[2018-07-26] MEDS: KETOROLAC 60 MG/2 ML VIAL (J1885) IM (14:00)
== END 2018-07-26 14:28 | disposition home or self-care (01) ==
LOC: M ED 10:35
DX: G89.29 Other chronic pain (principal); M54.2 Cervicalgia; M62.830 Muscle spasm of back; J45.909 Unspecified asthma, uncomplicated
CPT/HCPCS: J1885

== ENCOUNTER 2018-08-10 16:45 | Emergency (ER) | payer OTHER ==
[2018-08-10] MEDS: KETOROLAC 30 MG/ML VIAL (J1885) IV (17:23)
[2018-08-10 17:27] LABS: BASO # 0.1 10^3/uL (0.0-0.2); BASO % 0.6 % (0.0-1.0); EOS # 0.3 10^3/uL (0.0-0.50); EOS % 2.8 % (0.0-3.0); HEMATOCRIT 45.6 % (42.0-52.0); IMMATURE GRANULOCYTE % 0.4 % (0-3.0); LYMPH # 2.4 10^3/uL (1.5-4.5); LYMPH % 23.6 % (24.0-44.0); MEAN CORPUSCULAR HEMOGLOBIN 32.1 pg (27.0-33.0); MEAN CORPUSCULAR HGB CONC 35.1 g/dl (32.0-36.5); MEAN CORPUSCULAR VOLUME 91.4 fl (80.0-96.0); MONO # 0.6 10^3/uL (0.0-0.8); MONO % 6.1 % (0.0-5.0); NEUTROPHILS # 6.8 10^3/uL (1.8-7.7); NEUTROPHILS % 66.5 % (36.0-66.0); PLATELET COUNT, AUTOMATED 205 10^3/uL (150-450); RED BLOOD COUNT 4.99 10^6/uL (4.30-6.10); RED CELL DISTRIBUTION WIDTH 12.1 % (11.5-14.5); WHITE BLOOD COUNT 10.2 10^3/uL (4.0-10.0)
[2018-08-10 17:32] LABS: KETONE, URINE AUTO RFX NEGATIVE (NEGATIVE); LEUKOCYTE ESTERASE UR AUTO RFX NEGATIVE (NEGATIVE); MUCUS, URINE RFX SMALL (NEGATIVE); NITRITE, URINE AUTO RFX NEGATIVE (NEGATIVE); RBC, URINE AUTO RFX 2 /HPF (0-3); SPECIFIC GRAVITY UR AUTO RFX 1.021 (1.002-1.035); SQUAM EPITHELIAL CELL UR AURFX 0 /HPF (0-6); WBC, URINE AUTO RFX 0 /HPF (0-3)
[2018-08-10 17:44] LABS: ANION GAP 3 MEQ/L (8-16); BLOOD UREA NITROGEN 10 MG/DL (7-18); C REACTIVE PROTEIN QUANTITATIV < 0.30 MG/DL (0.00-0.30); CALCIUM LEVEL 9.2 MG/DL (8.5-10.1); CARBON DIOXIDE LEVEL 30 MEQ/L (21-32); CHLORIDE LEVEL 111 MEQ/L (98-107); CREATININE FOR GFR 0.76 MG/DL (0.70-1.30); GLOMERULAR FILTRATION RATE > 60.0 (>60); GLUCOSE, FASTING 102 MG/DL (70-100); POTASSIUM SERUM 4.5 MEQ/L (3.5-5.1); SODIUM LEVEL 144 MEQ/L (136-145)
[2018-08-10] MEDS: fentaNYL 100 MCG/2 ML INJECTION (J3010) IV (18:07)
== END 2018-08-10 20:49 | disposition home or self-care (01) ==
LOC: M ED 16:45
DX: R10.31 Right lower quadrant pain (principal); R10.32 Left lower quadrant pain; Z87.442 Personal history of urinary calculi; J45.909 Unspecified asthma, uncomplicated; M54.2 Cervicalgia; F17.200 Nicotine dependence, unspecified, uncomplicated; Z88.5 Allergy status to narcotic agent; Z79.899 Other long term (current) drug therapy
CPT/HCPCS: J1885

== ENCOUNTER → 2018-12-02 | Outpatient (CLI) | payer OTHER, MEDICAID ==
[~2018-12-02] MED LIST changes: +ACET-683 PO; +ASCO25TA PO; +ASPI1TAB PO; +AUGM500T34 PO; +BACT800T5 PO; +CLAR1CHW PO; +FLOM0.4C39 PO; -FLOM5CAP PO; +GABA-843; +IBUP-1114 PO; +IBUP200C25 PO; +NAPR-885 PO; +OXYC-403 PO; +OXYC-517 PO; +ROBA500T PO; +TRAM50TA2 PO; +VARE1TA PO; +ZOFR4TAB14 PO; -ZOFR4TAB3 PO
[2018-12-02 13:41] LABS: RHEUMATOID FACTOR QUANT < 10.0 IU/ML (<15.0)
== END ==
LOC: M LABDRWAD 10:17
PROVIDERS: ATTEND Physician Assistant
DX: M47.892 Other spondylosis, cervical region (principal); M25.50 Pain in unspecified joint

== ENCOUNTER → 2018-12-02 | Outpatient (CLI) | payer OTHER, MEDICAID ==
[2018-12-02 13:17] LABS: BASO # 0.1 10^3/uL (0.0-0.2); BASO % 0.6 % (0.0-1.0); EOS # 0.3 10^3/uL (0.0-0.50); EOS % 3.6 % (0.0-3.0); HEMATOCRIT 45.5 % (42.0-52.0); HEMOGLOBIN 15.4 g/dl (13.5-17.5); LYMPH % 24.7 % (24.0-44.0); MEAN CORPUSCULAR HEMOGLOBIN 31.7 pg (27.0-33.0); MEAN CORPUSCULAR HGB CONC 33.8 g/dl (32.0-36.5); MEAN CORPUSCULAR VOLUME 93.6 fl (80.0-96.0); MONO # 0.6 10^3/uL (0.0-0.8); MONO % 7.8 % (0.0-5.0); NEUTROPHILS # 5.1 10^3/uL (1.8-7.7); NEUTROPHILS % 62.8 % (36.0-66.0); PLATELET COUNT, AUTOMATED 229 10^3/uL (150-450); RED BLOOD COUNT 4.86 10^6/uL (4.30-6.10); WHITE BLOOD COUNT 8.1 10^3/uL (4.0-10.0)
[2018-12-02 14:02] LABS: ERYTHROCYTE SEDIMENTATION RATE 7 mm/hr (0-15)
[2018-12-02 14:10] LABS: ALBUMIN 3.9 GM/DL (3.2-5.2); ALT/SGPT 55 U/L (12-78); BILIRUBIN,TOTAL 0.4 MG/DL (0.2-1.0); BLOOD UREA NITROGEN 8 MG/DL (7-18); C REACTIVE PROTEIN QUANTITATIV 0.83 MG/DL (0.00-0.30); CARBON DIOXIDE LEVEL 30 MEQ/L (21-32); CHLORIDE LEVEL 107 MEQ/L (98-107); CHOLESTEROL LEVEL 170 MG/DL (<200); CHOLESTEROL RISK RATIO 3.953 (<5); CREATININE FOR GFR 0.82 MG/DL (0.70-1.30); GLOMERULAR FILTRATION RATE > 60.0 (>60); GLUCOSE, FASTING 77 MG/DL (70-100); HDL CHOLESTEROL 43 MG/DL (>40); LDL CHOLESTEROL 104 MG/DL (<100); NON-HDL-C 127 MG/DL; POTASSIUM SERUM 4.7 MEQ/L (3.5-5.1); RHEUMATOID FACTOR QUANT < 10.0 IU/ML (<15.0); SODIUM LEVEL 143 MEQ/L (136-145); THYROID STIMULATING HORMONE 0.572 uIU/ML (0.358-3.740); TOTAL 25(OH) VITAMIN D 22.3 NG/ML (30.0-100.0); TOTAL PROTEIN 7.1 GM/DL (6.4-8.2); TRIGLYCERIDES LEVEL 117 MG/DL (<150); URIC ACID 4.9 MG/DL (3.5-7.2)
[2018-12-02 14:23] LABS: HEMOGLOBIN A1c 5.6 %
[2018-12-04 00:06] LABS: ANTI DOUBLE STRAND-DNA AB 1 IU/mL (0-9); ANTINUCLEAR ANTIBODIES DIRECT Negative (Negative); Lyme Disease IgG/IgM Antibodie <0.91 ISR (0.00-0.90); Lyme Disease IgM Ab Quantitati <0.80 index (0.00-0.79); RNP ANTIBODIES <0.2 AI (0.0-0.9); SJOGREN'S ANTI SS-A <0.2 AI (0.0-0.9); SJOGREN'S ANTI SS-B <0.2 AI (0.0-0.9); SMITH ANTIBODIES <0.2 AI (0.0-0.9)
[2018-12-06 00:06] LABS: CYCLIC CITRULLINATED PEPTIDE 5 units (0-19)
[2018-12-09 00:08] LABS: ANCA-ATYPICAL <1:20 titer (Neg:<1:20); CYTOPLASMIC NEUTROP AB ANCA-C <1:20 titer (Neg:<1:20); PERINUCLEAR AB ANCA-P <1:20 titer (Neg:<1:20)
== END ==
LOC: M LABDRWAD 10:23
PROVIDERS: ATTEND Family Medicine
DX: Z00.01 Encounter for general adult medical examination with abnormal findings (principal); R53.83 Other fatigue; M19.90 Unspecified osteoarthritis, unspecified site

== ENCOUNTER → 2018-12-10 | Outpatient (CLI) | payer OTHER ==
[~2018-12-10] MED LIST changes: -/ONDA4TA PO; -ASCO25TA PO; -ASPI1TAB PO; +ASPI81TA26 PO; -CLAR1CHW PO; +CLAR1CHW2 PO; +ONDA-1 PO; +VITA1TAB23 PO
--- NOTE | 2018-12-30 02:28 | ECWPNPC ---
PATIENT NAME: SUSHMA CESPEDES : 1980 GENDER: MALE VISIT DATE: 12/10/2018 DISCHARGE DATE: 12/10/18 1301 VISIT LOCKED DATE TIME: PHYSICIAN: RONALDO PERALES MD RESOURCE: RONALDO PERALES MD REASON FOR APPOINTMENT 1. FLANK PAIN, REFER FROM SURGICAL PRACTICE HISTORY OF PRESENT ILLNESS HISTORY OF PRESENT ILLNESS: PAIN THE PATIENT DESCRIBES THE PAIN... 47 YEAR OLD MALE PATIENT WITH A HISTORY OF CHRONIC LEFT INGUINAL PAIN. THE PATIENT DESCRIBES THE PAIN TENDER, ACHING, TINGLING AND CONTINUOUS WITH A PAIN SCORE THAT RANGE FROM 4 TO 7/10 DEPENDING IN OCCASIONS IN THE ACTIVITIES. PATIENT STATES THE PAIN AND TINGLING WAKE HIM UP AT NIGHT. THE PATIENT ALSO SAYS THERE IS TENDERNESS AND TINGLING IN THE LEFT THIGH AREA. PATIENT IS CURRENTLY USING GABAPENTIN AND TIZANIDINE TO AID IN PAIN RELIEF. THE PATIENT HAS HAD MULTIPLE INGUINAL SURGERIES IN THE PAST AND HAS A HISTORY OF BLADDER AND KIDNEY STONES. PATIENT DENIES UNEXPLAINABLE WEIGHT LOSS, FEVER, CHILLS, NEW CHANGES ON HIS URINARY OR BOWEL CONTROL. FALL RISK SCREENING: SCREENING : NO FALLS IN THE PAST YEAR. CURRENT MEDICATIONS TAKING GLUCOSAMINE 500 MG CAPSULE 1 CAPSULE WITH A MEAL ORALLY ONCE A DAY TAKING MELATONIN ___ TABLET 2 TABLETS IN THE EVENING NEEDED WITH FOOD ORALLY ONCE A DAY TAKING CHANTIX STARTING MONTH BUSHRA 0.5 MG X 11 & 1 MG X 42 TABLET DIRECTED ORALLY DIRECTED TAKING TIZANIDINE HCL 2 MG TABLET 1 TABLET NEEDED ORALLY THREE TIMES A DAY TAKING LORATADINE 10 MG TABLET 1 TABLET ORALLY ONCE A DAY TAKING GABAPENTIN 600 MG TABLET 1 TABLET ORALLY THREE TIMES DAILY NOT-TAKING VITAMIN D 400 UNIT CAPSULE 1 CAPSULES ORALLY ONCE A DAY NOT-TAKING KETOROLAC TROMETHAMINE 10 MG TABLET 1 TABLET WITH FOOD OR MILK NEEDED ORALLY EVERY 6 HRS NOT-TAKING KETOROLAC TROMETHAMINE 10 MG TABLET 1 TABLET WITH FOOD OR MILK NEEDED ORALLY EVERY 6 HRS NOT-TAKING VITAMIN C 500 MG TABLET CHEWABLE 1 TABLET ORALLY ONCE A DAY NOT-TAKING CYCLOBENZAPRINE HCL 10 MG TABLET 1 TABLET NEEDED ORALLY THREE TIMES A DAY NOT-TAKING OXYBUTYNIN CHLORIDE 5 MG TABLET 1 TABLET ORALLY TWICE A DAY NOT-TAKING ASPIRIN 325 MG TABLET 1 TABLET ORALLY ONCE A DAY NOT-TAKING IBUPROFEN 200 MG TABLET 1 TABLET NEEDED ORALLY EVERY 6 HRS NOT-TAKING GLUCOSAMINE CHONDR COMPLEX 500-400 MG CAPSULE 1 CAPSULE WITH A MEAL ORALLY ONCE A DAY NOT-TAKING NICODERM CQ 7 MG/24HR PATCH 24 HOUR 1 PATCH TO SKIN TRANSDERMAL ONCE A DAY, NOTES: ON HOLD FOR SURGERY NOT-TAKING FERROUS GLUCONATE 325 MG CAPSULE 1 TABLET ORALLY 3-4 TIMES DAILY NOT-TAKING HYDROCODONE-ACETAMINOPHEN 5-325 MG TABLET 1 TABLET NEEDED ORALLY EVERY 6 HRS, MDD 4 NOT-TAKING PERCOCET 5-325 MG TABLET 1 TABLET NEEDED ORALLY EVERY 6 HRS. MDD 4 NOT-TAKING CIPRO 500 MG TABLET 1 TABLET ORALLY TWICE A DAY NOT-TAKING MULTI VITAMIN DAILY TABLET 1 TABLET ORALLY ONCE A DAY MEDICATION LIST REVIEWED AND RECONCILED WITH THE PATIENT PAST MEDICAL HISTORY ALLERGIC RHINITIS INCONTINENCE KIDNEY STONES CHRONIC LEFT GROIN PAIN ALLERGIES MORPHINE SULFATE: HEADACHE - SIDE EFFECTS SURGICAL HISTORY LT KNEE 2007 INGUINAL HERNIA 2005 ARTHROSCOPIC KNEE SURGERY 08/2015 LEFT STONE LITHOTRIPSY/URETERSCOPY WITH STENT 08/31/17 CYSTOSCOPY WITH LEFT DOUBLE J STENT REMOVAL 09/07/17 LEFT HIP REPLACEMENT 2013 FAMILY HISTORY FATHER: ALIVE, DIABETES, HEART DISEASE MOTHER: ALIVE, DIABETES, MELANOMA SIBLINGS: ALIVE SON(S): ALIVE DAUGHTER(S): ALIVE PATERNAL GRAND FATHER: , MS PATERNAL GRAND MOTHER: , HEART ATTACK MATERNAL GRAND FATHER: , HOUSE FIRE MATERNAL GRAND MOTHER: , LUNG DISEASE 3 BROTHER(S) - HEALTHY. 2 SON(S) , 1 DAUGHTER(S) - HEALTHY. SOCIAL HISTORY GENERAL: TOBACCO USE ARE YOU A:CURRENT SMOKER ARE YOU INTERESTED IN QUITTING?READY TO QUIT COUNSELED THE PATIENT ON TOBACCO USE, CESSATION [id number]/03/2017 HOW MANY CIGARETTES A DAY DO YOU SMOKE?6-10 HOW SOON AFTER YOU WAKE UP DO YOU SMOKE YOUR FIRST CIGARETTE?6-30 MIN HOW OFTEN DO YOU SMOKE CIGARETTES?EVERY DAY PATIENT COUNSELED ON THE DANGERS OF TOBACCO USE AND URGED TO QUIT:12/10/2018 LATEX QUESTIONNAIRE LATEX ALLERGY : HAVE YOU EVER DEVELOPED ANY TYPE OF REACTION AFTER HANDLING LATEX PRODUCTS SUCH RUBBER GLOVES, CONDOMS, DIAPHRAGMS, BALLOONS, SOCKS, OR UNDERWEAR?NO LATEX ALLERGY : HAVE YOU EVER DEVELOPED ANY TYPE OF REACTION DURING OR AFTER DENTAL APPOINTMENT, VAGINAL/RECTAL EXAMINATION, SURGICAL PROCEDURE, OR ANY OTHER EXPOSURE?NO LATEX RISK : HAVE YOU EVER HAD ANY DIFFICULTY BREATHING OR HIVES AFTER EATING OR HANDLING ANY FRUITS, OR VEGETABLES; SUCH KIWI, BANANAS, STONE FRUITS, OR CHESTNUTSNO LATEX RISK : DO YOU HAVE A PREVIOUS PERSONAL HISTORY OF MORE THAN NINE SURGERIES, SPINA BIFIDA, OR REPEATED CATHERTIZATIONS? NO LATEX RISK : ARE YOU FREQUENTLY EXPOSED TO LATEX PRODUCTS IN YOUR OCCUPATION?NO DATE ASKED : 12/10/2018 [place] 2-5/DAY. HIV / HEP-C SCREENING HIV TEST OFFERED TO PATIENT:YES DATE OFFERED:09/23/2016 TEST ACCEPTED:NO REASON:PATIENT DECLINED HEP-C TEST OFFERED TO PATIENT:NO N/A LEARNING BARRIERS / SPECIAL NEEDS CHANGE FROM LAST VISIT?NO BARRIERS TO LEARNING?NO HEARING IMPAIRED?NO VISION IMPAIRED?NO COGNITIVELY IMPAIRED?NO READINESS TO LEARN?YES LEARNING PREFERENCES?NO LEARNING CAPABILITIES PRESENT?YES EMOTIONAL BARRIERS?NO SPECIAL DEVICES?NO OCCUPATION: UNEMPLYED. DIET: REGULAR. OTHERS AT HOME: GIRLFRIEND, 3 CHILDREN. NEW PATIENT PAIN DIARY FROM 0-10, WHAT LEVEL IS YOUR PAIN TODAY?5 PRECIPITATING FACTORS GROIN PAIN TRIGGERED BY TOUCHING, LONG WALKS, URINATING, PHYSICAL ACTIVITY ALLEVIATING FACTORS NOTHING IMPACT ON FUNCTION REDUCED ACTIVITY IS THERE A CHANCE YOU COULD BE ?NO HAVE YOU BEEN SICK IN THE LAST WEEK (COLD, COUGH, FEVER, FLU, ETC)NO DO YOU TAKE ANY BLOOD THINNERS?NO DO YOU HAVE ANY RASHES OR OPEN SORES?NO ANY CHANGE IN BOWEL OR BLADDER CONTROL?NO ARE YOU ALLERGIC TO SHELLFISH OR IV DYE?NO ARE YOU DIABETIC?NO DO YOU HAVE A PACEMAKER OR DEFIBRILLATOR?NO ANY NEW PROBLEMS WITH MEDICINES OR NEW ALLERGIESNO ANY NEW PATTERNS OF PAIN OR NUMBNESS?NO ANY CHANGE IN YOUR MEDICAL CONDITION?NO HAVE YOU FALLEN IN THE LAST 6 MONTHS?NO ARE YOU ABUSED, NEGLECTED, OR IN AN UNSAFE ENVIRONMENT?NO DO YOU HAVE THOUGHTS OF HURTING YOURSELF OR SOMEONE ELSE?NO PAIN CLINIC PFS, CLERGY, PUBLIC HEALTH REFERRALS WAS THE PROVIDER NOTIFIED OF ANY PERTINENT INFO?YES HAS THE PATIENT BEEN EDUCATED REGARDING HIS/HER PLAN OF CARE?YES ORIENTED TO PAIN MANAGEMENT HAS THE PATIENT BEEN EDUCATED REGARDING PAIN, THE RISK FOR PAIN, THE IMPORTANCE OF EFFECTIVE PAIN MANAGEMENT, AND THE PAIN ASSESSMENT PROCESS?YES ADVANCE DIRECTIVE ADVANCE DIRECTIVE DISCUSSED WITH PATIENT:YES PT STATES THAT HE DOES NOT HAVE HCP AT THIS TIME AND REFUSES ASSISTANCE WILL COMPLETING HCP PAPERWORK. HOSPITALIZATION/MAJOR DIAGNOSTIC PROCEDURE NO HOSPITALIZATION HISTORY. REVIEW OF SYSTEMS REVIEWED BY: PROVIDER: RONALDO PERALES MD . CONSTITUTIONAL: ANY CHANGE IN YOUR MEDICAL CONDITION? NO . CHILLS NO . FEVER NO . INFECTION: DO YOU HAVE NEW INFECTIONS? NO . DO YOU HAVE HISTORY OF MRSA? NO . MUSCULOSKELETAL: ANY NEW PATTERNS OF PAIN OR NUMBNESS? NO . GASTROENTEROLOGY: ANY NEW CHANGE IN BOWEL CONTROL? NO . GENITOURINARY: ANY NEW CHANGE IN BLADDER CONTROL? NO . IS THERE A CHANCE YOU COULD BE ? NO . HEMATOLOGY/LYMPH: DO YOU TAKE ANY BLOOD THINNERS? (FOR EXAMPLE- COUMADIN, PLAVIX, AGGRENOX, PLATEL, PRADAXA, OR XARELTO) NO . WHEN WAS YOUR LAST DOSE? DATE: TIME: . NEUROLOGY: HAVE YOU FALLEN IN THE PAST 12 MONTHS? NO . ANY NEW EXTREMITY NUMBNESS OR WEAKNESS? NO . CARDIOLOGY: DO YOU HAVE A PACEMAKER OR DEFIBRILLATOR? NO . RESPIRATORY: HAVE YOU BEEN SICK IN THE PAST WEEK? NO . FEVER NO . FLU LIKE SYMPTOMS? NO . COUGH NO . INTEGUMENTARY: DO YOU HAVE ANY RASHES OR OPEN SORES? NO . ALLERGIC/IMMUNO: ARE YOU ALLERGIC TO IV DYE? NO . ANY NEW ALLERGIES? NO . PSYCHIATRIC: DO YOU HAVE THOUGHTS OF HURTING YOURSELF OR SOMEONE ELSE? NO . ARE YOU ABUSED, NEGLECTED, OR IN AN UNSAFE ENVIRONMENT? NO . ENDOCRINOLOGY: ARE YOU DIABETIC? NO . OTHER: DO YOU NEED ANY PRESCRIPTIONS? NO . IF YES, PLEASE LIST: ____ . ANY NEW PROBLEMS WITH YOUR MEDICATIONS? NO . WHEN DID YOU LAST EAT? ____ . WHEN DID YOU LAST DRINK? ____ . WHAT DID YOU LAST DRINK? ____ . NAME OF PERSON DRIVING YOU HOME? ____ . DO YOU HAVE ANY OTHER QUESTIONS OR CONCERNS PT IS CURRENT SMOKER, ATTEMPTING TO QUIT AT THIS TIME . VITAL SIGNS WT 173.0 LBS, HT 68 IN, BMI 26.30 INDEX, BP 139/77 MM HG, HR 86 /MIN, RR 18 /MIN, TEMP 99.9 F, OXYGEN SAT % 96%, SAFE IN ENV? (Y/N) Y, NA INITIALS AW 1146, REVIEWED BY: RICHARD. EXAMINATION GENERAL EXAMINATION: PATIENT IS ALERT O X 3 AND COOPERATIVE. , LUNGS CLEAR, TO AUSCULTATION. HEART: NO MURMURS OR GALLOPS; FACIAL CRANIAL NERVES ARE GROSSLY NORMAL. GOOD SYMMETRY OF FACIAL MUSCLE MOVEMENT. NORMAL VISUAL PORTILLO. TENDERNESS OVER THE LEFT INGUINAL REGION. TINGLING OVER THE LEFT THIGH REGION. CT OF THE ABDOMEN DONE 08/10/2018 SHOWS BILATERAL INTRARENAL CALCULI. ULTRASOUND OF THE PELVIS DONE 08/10/2018 SHOWS NO ACUTE FINDINGS. ULTRASOUND OF THE SCROTUM DONE 08/10/2018 IS UNREMARKABLE. 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 CESPEDES'S PAIN MANAGEMENT CASE. I WILL START THE PATIENT ON CYMBALTA 30 MG ONCE A DAY WITH FOOD. WE DISCUSSED THE POSSIBILITY OF AN INGUINAL NERVE BLOCK IN THE FUTURE BUT WE WILL SEE IF THE CYMBALTA HELPS FIRST. THE PATIENT WILL FOLLOW UP WITH ME IN 3 WEEKS. INSTRUCTIONS WERE GIVEN, QUESTIONS WERE ANSWERED, PATIENT REPORTS UNDERSTANDING AND AGREES WITH THE PLAN. I, JIMBO YEBOAH, DOCUMENTED THE ABOVE INFORMATION ACTING A SCRIBE FOR DR. PERALES. I HAVE REVIEWED THE ABOVE DOCUMENT, WRITTEN BY JIMBO KENNEY AND I VERIFY THAT IT IS ACCURATE. DEAR DR. OSWALDO PEDERSON MD:THANK YOU FOR YOUR KIND REFERRAL OF MR. CESPEDES. IF YOU WANT TO DISCUSS HIS CASE WITH ME PLEASE CALL ME AT THE PAIN CENTER AT [phone]. SINCERELY,RONALDO PERALES, [facility] . OTHERS START CYMBALTA CAPSULE DELAYED RELEASE PARTICLES, 30 MG, 1 CAPSULE, ORALLY WITH FOOD, ONCE A DAY, 30 DAY(S), 30, REFILLS 1 PROCEDURE CODES FA211 ESTABILISHED PATIENT [facility] FACILITY CHARGE G8427 CURRENT MEDS W/DOSAGES DOCUMENTED G8730 PAIN ASSESS POS TOOL F/U PLAN DOC DISPOSITION & COMMUNICATION ELECTRONICALLY SIGNED BY RONALDO PERALES MD, MD ON 12/28/2018 AT 01:00 PM EDT DISCLAIMER : THIS IS A VISIT SUMMARY EXTRACTED FROM THE Go[employer] CHART. IT IS NOT A COPY OF THE [employer] PROGRESS NOTE. MTDD
== END ==
LOC: M PAIN 11:30
PROVIDERS: ATTEND Anesthesiology
DX: M79.2 Neuralgia and neuritis, unspecified (principal); J30.9 Allergic rhinitis, unspecified; R10.32 Left lower quadrant pain; F17.210 Nicotine dependence, cigarettes, uncomplicated; Z87.442 Personal history of urinary calculi; Z79.899 Other long term (current) drug therapy; Z96.642 Presence of left artificial hip joint

== ENCOUNTER 2020-02-19 20:43 | Observation (INO) | payer OTHER, MEDICAID ==
[~2020-02-19] VITALS: Ht 175.3 cm; Wt 69.1 kg
[~2020-02-19 20:43] MED LIST changes: +ASCO250T20 PO; +GABA-282; -GABA-843; -VITA1TAB23 PO
[2020-02-19] MEDS ORDERED: TIZA2TA PO (20:56)
[2020-02-19] MEDS ORDERED: NS 1,000 ML IV ONE ×2 (21:00→21:45)
[2020-02-19] MEDS ORDERED: PANTOPRAZOLE 40MG VIAL (C9113 PER 1) IV ONE (21:00)
[2020-02-19] MEDS ORDERED: PROMETHAZINE INJ 25 MG/ML VIAL (J2550) IV ONE (21:00)
[2020-02-19 21:25] LABS: BASO % 0.2 % (0.0-1.0); EOS # 0.1 10^3/uL (0.0-0.5); EOS % 0.6 % (0.0-3.0); HEMATOCRIT 39.7 % (42.0-52.0); LYMPH # 1.7 10^3/uL (1.5-5.0); LYMPH % 10.4 % (24.0-44.0); MEAN CORPUSCULAR HEMOGLOBIN 31.3 pg (27.0-33.0); MEAN CORPUSCULAR HGB CONC 35.3 g/dl (32.0-36.5); MEAN CORPUSCULAR VOLUME 88.6 fl (80.0-96.0); MONO # 0.6 10^3/uL (0.0-0.8); MONO % 3.5 % (0.0-5.0); NEUTROPHILS # 13.6 10^3/uL (1.5-8.5); NEUTROPHILS % 84.7 % (36.0-66.0); PLATELET COUNT, AUTOMATED 199 10^3/uL (150-450); RED BLOOD COUNT 4.48 10^6/uL (4.30-6.10); WHITE BLOOD COUNT 16.1 10^3/uL (4.0-10.0)
[2020-02-19 22:06] LABS: ALBUMIN 4.2 GM/DL (3.2-5.2); ALT/SGPT 18 U/L (12-78); AMYLASE 62 U/L (25-115); BILIRUBIN,DIRECT 0.3 MG/DL (0.0-0.2); BILIRUBIN,TOTAL 1.1 MG/DL (0.2-1.0); BLOOD UREA NITROGEN 9 MG/DL (7-18); CALCIUM LEVEL 9.6 MG/DL (8.5-10.1); CARBON DIOXIDE LEVEL 23 MEQ/L (21-32); CHLORIDE LEVEL 106 MEQ/L (98-107); CREATININE FOR GFR 0.79 MG/DL (0.70-1.30); GLOMERULAR FILTRATION RATE > 60.0 (>60); GLUCOSE, FASTING 127 MG/DL (70-100); LIPASE 65 U/L (73-393); POTASSIUM SERUM 3.5 MEQ/L (3.5-5.1); SODIUM LEVEL 144 MEQ/L (136-145); TOTAL PROTEIN 7.3 GM/DL (6.4-8.2)
[2020-02-19] MEDS ORDERED: ONDANSETRON 4MG/2ML VIAL As Ordered ONE (22:33)
[2020-02-19] MEDS ORDERED: ONDANSETRON 4MG/2ML VIAL IV ONE (22:45)
[2020-02-19] MEDS ORDERED: ZOFR4TAB16 PO (23:29)
--- NOTE | 2020-02-20 01:07 | REP ---
Clinical: Acute abdominal pain. Technique: Upright view of the chest with supine and upright views of the abdomen and pelvis. Findings: Frontal upright view of the chest demonstrates no acute cardiopulmonary process or free air below the diaphragm to suspect pneumoperitoneum. Supine and upright views of the abdomen and pelvis demonstrate nonspecific bowel gas pattern without obstruction or perforation. No organomegaly. No abnormal calcifications. Skeletal structures demonstrate age-related changes and left hip replacement. Evidence of prior ventral hernia repair suggested. Impression: Nonspecific bowel gas pattern. Electronically Signed by Pierre Medrano MD 02/20/2020 12:58 A
[2020-02-20 02:06] LABS: CK-MB VALUE MASS 1.2 NG/ML (<3.6); CPK CREATINE PHOSPHOKINASE 44 U/L (39-308); MB/CK RELATIVE INDEX 2.73 (< OR =4); TROPONIN I < 0.02 NG/ML (< 0.10)
[2020-02-20] MEDS ORDERED: ISOVUE-370 76% 100ML VIAL As Ordered ONE (02:48)
[2020-02-20] MEDS ORDERED: METOCLOPRAMIDE INJ 10MG/2ML VIAL (J2765 PER 1) IV ONE (03:15)
--- NOTE | 2020-02-20 03:15 | HPEPDOC ---
General Date of Admission Date of Service: Feb 20, 2020 Chief Complaint The patient is a 40-year-old male admitted with a reason for visit of N/V. Source: Patient Exam Limitations: No limitations Timing/Duration: Other (24 hours) Severity: Severe Associated Symptoms: Other (, nausea and vomiting) History of Present Illness This is a 40 years old white male with past medical history of allergic rhinitis, kidney stones, hasn't data in the ED with chief complaints of nausea, vomiting since last 24 hours. According to patient, he also had lost 20 pounds in the past 1 month and also has a decreased appetite. Patient denies any drug abuse, [id number] medication use, chest pain, shortness of breath, etc. Home Medications Scheduled Ibuprofen (Ibuprofen) 400 Mg Tab, 2 TAB PO TID for fever, (Reported) Ondansetron HCl (Zofran) 4 Mg Tablet, 1 TAB PO Q6H Miscellaneous Medications Gabapentin (Gabapentin) 300 Mg Cap, (Reported) Tizanidine HCl (Tizanidine HCl) 2 Mg Tablet, (Reported) Allergies Coded Allergies: morphine (Verified Adverse Reaction, Mild, HEADACHE, 02/19/20) Past Medical History Medical History Allergic rhinitis and kidney stones and urinary incontinence Surgical History Left knee surgery in 1. Hernia repair, arthroscopic knee surgery, left stone lithotripsy, ureteroscopy with stent in 2017 cystoscopy with double-J stent removal August 2017 Family History Follow-up alive, has diabetes and heart disease. Mother is also alive his diabetes and melanoma Social History * Smoker: current smoker Alcohol: Denies Drugs: denies A-FIB/CHADSVASC A-FIB History Current/History of A-Fib/PAF?: No Review of Systems Constitutional: Reports: Weight Loss, Other (, anorexia); Denies: Chills, Fever, Malaise, Night Sweats, Weakness, Fatigue, Lethargy Eyes: Denies: Pain, Vision change, Conjunctivae inflammation, Eyelid inflammation, Redness, Other ENT: Denies: Head Aches, Ear Pain, Dysphagia, Sinus Congestion, Post Nasal Drip, Sore Throat, Epistaxis, Other Symptoms Skin: Denies: Rash, Lesions, Jaundice, Bruising, Itching, Dry, Breakdown, Nail Changes, Other Pulmonary: Denies: Dyspnea, Cough, Pleuritic Chest Pain, Other Symptoms Cardiovascular: Denies: Chest Pain, Palpitations, Orthopnea, Paroxysmal Noc. Dyspnea, Edema, Lt Headedness, Other Symptoms Gastrointestinal: Reports: Nausea, Vomiting Genitourinary: Denies: Dysuria, Frequency, Incontinence, Hematuria, Retention, Other Symptoms Hematologic: Denies: Bruising, Bleeding Excessively, Petecchia, Purpura, Enlarged Lymph Nodes, Other Hematologic Endocrine: Denies: Polydipsia, Polyphagia, Polyuria, Heat Intolerance, Cold Intolerance, Other Endocrine Sx Musculoskeletal: Denies: Neck Pain, Back Pain, Shoulder Pain, Arm Pain, Hand Pain, Leg Pain, Foot Pain, Joint Pain, Muscle Pain, Spasms, Other Symptoms Psych: Denies: Mood Normal, Anxiety, Depression, Memory Issues, Thoughts of Self Harm, Anger, Thoughts of Harming Other, Other Psych Physical Examination General Exam: Positive: Alert, Cooperative Eye Exam: Positive: PERRLA, Conjunctiva & lids normal ENT Exam: Positive: Mucous membr. moist/pink Neck Exam: Positive: Supple Chest Exam: Positive: Clear to auscultation, Normal air movement Heart Exam: Positive: Rate Normal, Normal S1, Normal S2 Abdomen Exam: Positive: Normal bowel sounds, Soft Extremity Exam: Positive: Normal pulses Skin Exam: Positive: Nl turgor and temperature Neuro Exam: Positive: Strength at 5/5 X4 ext, Cranial Nerves 3-12 NL Psych Exam: Positive: Mood NL, Oriented x 3 Vital Signs Vital Signs Date Time Temp Pulse Resp B/P (MAP) Pulse Ox O2 Delivery O2 Flow Rate FiO2 02/20/20 02:02 47 100 02/20/20 01:45 127/74 (91) 02/19/20 20:55 98.2 18 Room Air Laboratory Data Labs 24H Laboratory Tests 2 02/19/20 21:09: Immature Granulocyte % (Auto) 0.6, Neutrophils (%) (Auto) 84.7H, Lymphocytes (%) (Auto) 10.4L, Monocytes (%) (Auto) 3.5, Eosinophils (%) (Auto) 0.6, Basophils (%) (Auto) 0.2, Neutrophils # (Auto) 13.6H, Lymphocytes # (Auto) 1.7, Monocytes # (Auto) 0.6, Eosinophils # (Auto) 0.1, Basophils # (Auto) 0.0, Nucleated Red Blood Cells % (auto) 0.0, Anion Gap 15, Glomerular Filtration Rate > 60.0, Calcium Level 9.6, Total Bilirubin 1.1H, Direct Bilirubin 0.3H, Aspartate Amino Transf (AST/SGOT) 13, Alanine Aminotransferase (ALT/SGPT) 18, Alkaline Phosphatase 83, Total Protein 7.3, Albumin 4.2, Albumin/Globulin Ratio 1.4, Amylase Level 62, Lipase 65L 02/20/20 01:31: Total Creatine Kinase 44, Creatine Kinase MB 1.2, Creatine Kinase MB Relative Index 2.73, Troponin I < 0.02 02/20/20 02:41: Urine Color YELLOW, Urine Appearance CLEAR, Urine pH 7.0, Urine Specific [place] 1.019, Urine Protein NEGATIVE, Urine Glucose (UA) NEGATIVE, Urine Ketones 2+H, Urine Blood NEGATIVE, Urine Nitrite NEGATIVE, Urine Bilirubin NEGATIVE, Urine Urobilinogen 4.0H, Urine Leukocyte Esterase NEGATIVE, Urine WBC (Auto) 1, Urine RBC (Auto) 3, Urine Hyaline Casts (Auto) 0, Urine Bacteria (Auto) NEGATIVE, Urine Squamous Epithelial Cells 0, Urine Mucus (Auto) SMALL, Urine Sperm (Auto) CBC/BMP Laboratory Tests 02/19/20 21:09 Problems (1) Intractable nausea and vomiting Status: Acute Problem Text: 40 years old white male admitted with intractable nausea, vomiting. He did receive her Zofran total dose of 12 mg and Phenergan total dose of 25 mg in the ED without any symptom relief and we were called in to admit patient for further observation. On further questioning, patient also complains of weight loss and anorexia since last 1 month. Patient also has extensive history of kidney stones and had that urological procedures done in the past. Hence, cannot rule out urolithiasis for cause of his symptoms. Also, patient declines any drug abuse, but cannot also rule out marijuana hyperemesis syndrome, or use of other illicit drugs causing nausea, vomiting, such as opiates, amphetamines, etc. Patient does have a slightly elevated leukocytosis with WBC count of 16.1. Electrolytes are within normal range, leukocytosis, most likely acute phase reaction, doubt there is any bacterial infection, but weight till pending workup including UA is back, then patient can be started on IV antibiotics, If there is urinary tract infection. UA and has been ordered, report pending Urine tox has been ordered, report pending CT of the abdomen and pelvis without contrast to rule out urolithiasis is being done now Admit patient to [facility] floor for observation with telemetry IV fluid normal saline 150 mL per hour Nothing by mouth except meds Zofran 4 mg IV every 4 hours when necessary Phenergan 25 mg IV every 4 hours when necessary 1 dose of Reglan 10 mg IV will be given today Further depends on the pending workup Diet nothing by mouth Activity as tolerated DVT prophylaxis with Lovenox (2) Sinus bradycardia Status: Acute Problem Text: Most likely secondary to vasovagal phenomenon secondary to persistent nausea and vomiting Will monitor patient on telemetry, but I don't think he requires any further cardiac workup . We'll continue monitoring his heart rate while he is being hydrated and treated for his symptoms (3) Weight loss Status: Acute Problem Text: According to patient, he lost 20 pounds in one month. Patient's weight today 63.6 kg and when I checked his old records in October 2017, his weight was 66.4 kg, so seems like he lost 3 kg in more than one year. . Further workup depends on his pending workup inpatient at the present time. Otherwise, he is a scheduled with his PCP for his weight loss. Workup as an outpatient. Plan / VTE VTE Prophylaxis Ordered?: Yes ORLIN MOYER MD Feb 20, 2020 03:15
[2020-02-20 03:17] LABS: AMPHETAMINES LEVEL URINE NEGATIVE (NEGATIVE); BARBITURATES URINE NEGATIVE (NEGATIVE); BENZODIAZEPINES URINE NEGATIVE (NEGATIVE); CANNABINOIDS URINE POSITIVE (NEGATIVE); COCAINE METABOLITE URINE NEGATIVE (NEGATIVE); METHADONE URINE POSITIVE (NEGATIVE); OPIATES URINE POSITIVE (NEGATIVE); PHENCYCLIDINE URINE NEGATIVE (NEGATIVE)
--- NOTE | 2020-02-20 03:27 | REPVR ---
PROCEDURE INFORMATION: Exam: CT Abdomen And Pelvis With Contrast Exam date and time: 02/20/2020 3:14 AM Age: 40 years old Clinical indication: Abdominal pain; Additional info: Vom TECHNIQUE: Imaging protocol: Computed tomography of the abdomen and pelvis with intravenous contrast. Radiation optimization: All CT scans at this facility use at least one of these dose optimization techniques: automated exposure control; mA and/or kV adjustment per patient size (includes targeted exams where dose is matched to clinical indication); or iterative reconstruction. Contrast material: ISO 370; Contrast volume: 100 ml; Contrast route: IV; COMPARISON: CT ABD PELVIS W/O CONTRAST 08/10/2018 5:26 PM FINDINGS: Liver: The liver attenuation is 78 Hounsfield units and the spleen is 127 Hounsfield units. Gallbladder and bile ducts: Normal. No calcified stones. No ductal dilation. Pancreas: Normal. No ductal dilation. Spleen: Normal. No splenomegaly. Adrenals: Left adrenal nodule measuring 32 x 15 x 16 mm which is similar to the prior study. No follow-up necessary. Kidneys and ureters: Normal. No hydronephrosis. Stomach and bowel: Slight wall thickening of the sigmoid and rectum. Appendix: There are no changes of appendicitis. A normal appendix is not seen. Intraperitoneal space: Unremarkable. No free air. No significant fluid collection. Vasculature: Unremarkable. No abdominal aortic aneurysm. Lymph nodes: Unremarkable. No enlarged lymph nodes. Bladder: Unremarkable as visualized. Reproductive: Unremarkable as visualized. Bones/joints: Left hip prosthesis in position. Soft tissues: Unremarkable. IMPRESSION: 1. Question of minimal nonspecific distal colitis involving the sigmoid and rectum which is similar to 08/10/2018. 2. Fatty infiltration of the liver. 3. Otherwise negative CT abdomen/pelvis. Electronically signed by: Mandeep Stroud On 02/20/2020 03:26:31 AM
[2020-02-20] MEDS ORDERED: OMEP-218 PO (03:31)
[2020-02-20] MEDS ORDERED: LEVOTAB10 PO (03:31)
[2020-02-20] MEDS ORDERED: GABA-845 PO (03:31)
[2020-02-20] MEDS ORDERED: ONDA-83 PO (03:32)
[2020-02-20] MEDS ORDERED: CAPSAICIN 0.025% CR 60 GM TOP ONE (03:45)
[2020-02-20 04:00] VITALS: BP 138/66
[2020-02-20] MEDS: ACETAMINOPHEN TAB 650MG DOSE (2X325MG) PO PRN ×2 (04:32→15:30)
[2020-02-20] MEDS: NS 1,000 ML IV SCH ×2 (04:32→11:15)
[2020-02-20] MEDS: ONDANSETRON 4MG/2ML VIAL IV PRN ×2 (04:52→08:48)
[2020-02-20] MEDS: NICOTINE 21MG/24HR 1 EA TRANSDERMAL TD SCH (08:47)
[2020-02-20] MEDS: ENOXAPARIN 40MG/0.4ML SYRINGE (J1650 PER 10MG) SC SCH (09:55)
[2020-02-20 10:50] LABS: HEMOGLOBIN 12.6 g/dl (13.5-17.5); MEAN CORPUSCULAR HEMOGLOBIN 31.2 pg (27.0-33.0); MEAN CORPUSCULAR HGB CONC 34.1 g/dl (32.0-36.5); MEAN CORPUSCULAR VOLUME 91.6 fl (80.0-96.0); PLATELET COUNT, AUTOMATED 156 10^3/uL (150-450); RED BLOOD COUNT 4.04 10^6/uL (4.30-6.10); WHITE BLOOD COUNT 12.4 10^3/uL (4.0-10.0)
[2020-02-20 11:36] LABS: ALBUMIN 3.5 GM/DL (3.2-5.2); ALT/SGPT 17 U/L (12-78); BILIRUBIN,TOTAL 0.5 MG/DL (0.2-1.0); BLOOD UREA NITROGEN 9 MG/DL (7-18); CALCIUM LEVEL 8.3 MG/DL (8.5-10.1); CARBON DIOXIDE LEVEL 25 MEQ/L (21-32); CHLORIDE LEVEL 110 MEQ/L (98-107); CREATININE FOR GFR 0.79 MG/DL (0.70-1.30); GLOMERULAR FILTRATION RATE > 60.0 (>60); GLUCOSE, FASTING 148 MG/DL (70-100); MAGNESIUM LEVEL 1.8 MG/DL (1.8-2.4); POTASSIUM SERUM 3.5 MEQ/L (3.5-5.1); SODIUM LEVEL 142 MEQ/L (136-145)
[2020-02-20 14:00] VITALS: BP 127/59
--- NOTE | 2020-02-20 15:09 | IPNPDOC ---
Date Seen The patient was seen on 02/20/20. Progress Note SUBJECTIVE: Patient was seen and examined this morning. He continues to have nausea and vomiting although states that it has improved since yesterday. He states that he feels that he has an appetite and will like to try to eat. He was reported to have a fever this morning of 100.9. He otherwise denies shortness of breath or chest pain. He does admit to some diffuse abdominal pain OBJECTIVE PHYSICAL EXAMINATION: VITAL SIGNS: Please see below. GENERAL: Awake, alert, and oriented. Appears in no acute distress. Lying comfortably in bed HEENT: Atraumatic, normocephalic. Eyes are nonicteric. trachea is midline CARDIOVASCULAR: Normal S1, S2. Bradycardic. Regular rhythm. No clicks rubs or murmurs RESPIRATORY: Clear vesicular breath sounds bilaterally with good respiratory effort. No wheezes, rhonchi, or rales ABDOMINAL: Soft, nondistended. Mild tenderness diffusely. No rebound tenderness of guarding. Normoactive bowel sounds throughout. EXTREMITIES: No edema. Full and equal pulses in bilaterally upper and lower extremities NEUROLOGICAL: No focal neurological deficits PSYCHOLOGICAL: Mood and affect appear appropriate LABORATORY DATA, IMAGING STUDIES, MICROBIOLOGY: Please see below. DVT prophylaxis ordered?: Lovenox ASSESSMENT AND PLAN: Patient is a 40 year old male admitted to [facility] for complaint of intractable nausea and vomiting. PROBLEMS: 1. Intractable Nausea and vomiting likely 2/2 acute gastroenteritis likely viral -Patient had presented with intractable vomiting. He states he did have some diarrhea as well. His symptoms are consistent with likely viral gastroenteritis although patient does use marijuana/CBD and therefore hyperemesis from marijuana use can not be completely ruled out -Patient will be advanced to clear liquids. If tolerated will advance to full diet -Will D/C IV fluids when tolerating PO -Continue Zofran and Phenergan -Continue Toradol for pain given patients history of drug abuse 2. Fever -Patient has had two documented fevers of 100.9 and 100.2. -He is not tachycardic, WBC trending down to 12.4 today, CRP < 0.30 making se psis unlikely at this point -Will order Blood cultures x2 -Patient has a history of drug abuse in the past. States that he has never used intravenous drugs and only abused PO opioids. Will give empiric Vancomycin coverage -Patient abdominal imaging from yesterday demonstrated non-specific colitis. Fevers likely secondary to viral gastroenteritis. GI panel has been ordered. 3. Bradycardia -Patient has been noted to be bradycardic on several occasions. EKG performed today demonstrated sinus rhythm. There have been no pauses on telemetry. Patients heart rate does increase appropriately with physical exertion. Patient is likely bradycardic at baseline 4. Tobacco abuse -Nicotine patch 5. DVT prophylaxis -Lovenox DISPOSITION: Likely D/C in 24 hours when tolerating PO Attending attestation: I evaluated and examined the patient in person; I discussed the care with Resident in detail and agree with the plan above. VS, I&O, 24H, Fishbone Vital Signs/I&O Vital Signs Date Time Temp Pulse Resp B/P (MAP) Pulse Ox O2 Delivery O2 Flow Rate FiO2 02/20/20 14:00 100.2 74 18 127/59 (81) 99 Room Air I&O- Last 24 Hours up to 6 AM 02/20/20 05:59 Intake Total 2000 ml Balance 2000 ml Laboratory Data 24H LABS Laboratory Tests 2 02/19/20 21:09: Immature Granulocyte % (Auto) 0.6, Neutrophils (%) (Auto) 84.7H, Lymphocytes (%) (Auto) 10.4L, Monocytes (%) (Auto) 3.5, Eosinophils (%) (Auto) 0.6, Basophils (%) (Auto) 0.2, Neutrophils # (Auto) 13.6H, Lymphocytes # (Auto) 1.7, Monocytes # (Auto) 0.6, Eosinophils # (Auto) 0.1, Basophils # (Auto) 0.0, Nucleated Red Blood Cells % (auto) 0.0, Anion Gap 15, Glomerular Filtration Rate > 60.0, Calcium Level 9.6, Total Bilirubin 1.1H, Direct Bilirubin 0.3H, Aspartate Amino Transf (AST/SGOT) 13, Alanine Aminotransferase (ALT/SGPT) 18, Alkaline Phosphatase 83, Total Protein 7.3, Albumin 4.2, Albumin/Globulin Ratio 1.4, Amylase Level 62, Lipase 65L 02/20/20 01:31: Total Creatine Kinase 44, Creatine Kinase MB 1.2, Creatine Kinase MB Relative Index 2.73, Troponin I < 0.02 02/20/20 02:41: Urine Color YELLOW, Urine Appearance CLEAR, Urine pH 7.0, Urine Specific [place] 1.019, Urine Protein NEGATIVE, Urine Glucose (UA) NEGATIVE, Urine Ketones 2+H, Urine Blood NEGATIVE, Urine Nitrite NEGATIVE, Urine Bilirubin NEGATIVE, Urine Urobilinogen 4.0H, Urine Leukocyte Esterase NEGATIVE, Urine WBC (Auto) 1, Urine RBC (Auto) 3, Urine Hyaline Casts (Auto) 0, Urine Bacteria (Auto) NEGATIVE, Urine Squamous Epithelial Cells 0, Urine Mucus (Auto) SMALL, Urine Sperm (Auto) , Urine Opiates Screen POSITIVEH, Urine Methadone Screen POSITIVEH, Urine Barbiturates Screen NEGATIVE, Urine Phencyclidine Screen NEGATIVE, Urine Amphetamines Screen NEGATIVE, Urine Benzodiazepines Screen NEGATIVE, Urine Cocaine Metabolite Screen NEGATIVE, Urine Cannabinoids Screen POSITIVEH 02/20/20 07:30: Methicillin-Resist S.aureus DNA PCR NOT DETECTED 02/20/20 10:37: Nucleated Red Blood Cells % (auto) 0.0, Anion Gap 7L, Glomerular Filtration Rate > 60.0, Calcium Level 8.3L, Magnesium Level 1.8, Total Bilirubin 0.5#, Aspartate Amino Transf (AST/SGOT) 10, Alanine Aminotransferase (ALT/SGPT) 17, Alkaline Phosphatase 66, Total Protein 6.0L, Albumin 3.5, Albumin/Globulin Ratio 1.4 CBC/BMP Laboratory Tests 02/19/20 21:09 02/20/20 10:37 JOANNA TORRES DO Feb 20, 2020 15:09 LIBERTY BOWENS MD Feb 23, 2020 23:36
[2020-02-20] MEDS ORDERED: VANCOMYCIN HCL 1,000 MG in IV FLUID PLACE HOLDER 1 EA IV ONE (16:15)
[2020-02-20] MEDS ORDERED: VANCOMYCIN HCL 1,000 MG, VIAL MATE ADAPTER 1 EACH in D5W 250 ML IV ONE (16:30)
[2020-02-20] MEDS ORDERED: KETOROLAC 30 MG/ML 1ML VIAL IV ONE (19:30)
[2020-02-20 20:05] VITALS: BP 142/86
--- NOTE | 2020-02-20 20:26 | ECGEPIP ---
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
[2020-02-20 22:00] VITALS: BP 139/74
[2020-02-21] MEDS: ACETAMINOPHEN TAB 650MG DOSE (2X325MG) PO PRN (04:39)
[2020-02-21] MEDS: ONDANSETRON 4MG/2ML VIAL IV PRN ×2 (05:04→20:48)
[2020-02-21 05:59] LABS: HEMATOCRIT 38.7 % (42.0-52.0); HEMOGLOBIN 13.3 g/dl (13.5-17.5); MEAN CORPUSCULAR HEMOGLOBIN 31.2 pg (27.0-33.0); MEAN CORPUSCULAR HGB CONC 34.4 g/dl (32.0-36.5); MEAN CORPUSCULAR VOLUME 90.8 fl (80.0-96.0); PLATELET COUNT, AUTOMATED 159 10^3/uL (150-450); RED BLOOD COUNT 4.26 10^6/uL (4.30-6.10)
[2020-02-21 06:00] VITALS: BP 120/78
[2020-02-21 06:29] LABS: ALBUMIN 3.8 GM/DL (3.2-5.2); ALT/SGPT 19 U/L (12-78); BILIRUBIN,TOTAL 0.8 MG/DL (0.2-1.0); BLOOD UREA NITROGEN 6 MG/DL (7-18); CARBON DIOXIDE LEVEL 27 MEQ/L (21-32); CHLORIDE LEVEL 109 MEQ/L (98-107); CREATININE FOR GFR 0.69 MG/DL (0.70-1.30); GLOMERULAR FILTRATION RATE > 60.0 (>60); GLUCOSE, FASTING 102 MG/DL (70-100); MAGNESIUM LEVEL 1.8 MG/DL (1.8-2.4); POTASSIUM SERUM 3.7 MEQ/L (3.5-5.1); SODIUM LEVEL 141 MEQ/L (136-145); TOTAL PROTEIN 6.5 GM/DL (6.4-8.2)
[2020-02-21] MEDS: PROMETHAZINE INJ 25 MG/ML VIAL (J2550) IV PRN ×2 (08:34→14:19)
[2020-02-21] MEDS: ENOXAPARIN 40MG/0.4ML SYRINGE (J1650 PER 10MG) SC SCH (08:34)
[2020-02-21] MEDS: NICOTINE 21MG/24HR 1 EA TRANSDERMAL TD SCH (08:34)
[2020-02-21 14:00] VITALS: BP 152/90
[2020-02-21] MEDS ORDERED: CLINDAMYCIN 150MG CAPSULE PO SCH (14:00)
[2020-02-21] MEDS: CLINDAMYCIN 600 MG in IV 1 EA IV SCH ×2 (15:42→23:30)
[2020-02-21] MEDS ORDERED: METOCLOPRAMIDE INJ 10MG/2ML VIAL (J2765 PER 1) IV ONE (16:45)
[2020-02-21] MEDS ORDERED: PANTOPRAZOLE 40MG VIAL (C9113 PER 1) IV ONE (16:45)
--- NOTE | 2020-02-21 16:45 | IPNPDOC ---
Date Seen The patient was seen on 02/21/20. Progress Note SUBJECTIVE: Patient was seen and evaluated this morning. He continues to have fevers overnight. Patient states that he had tolerated clear liquids yesterday and was advanced to solids however developed nausea and vomiting. He states that he has been unable to keep anything down this morning. He denies any shortness of breath or chest pain. He denies worsening of abdominal pain and says he has s ome discomfort. Of note, the patient did mention to nursing that he had a tooth infection recently and had felt drainage the other day from the tooth OBJECTIVE PHYSICAL EXAMINATION: VITAL SIGNS: Please see below. GENERAL: Awake, alert, and oriented. Appears in no acute distress. Lying comfortably in bed HEENT: Atraumatic, normocephalic. Eyes are nonicteric. trachea is midline. Patient has overall poor dentition. There is no fluctuant masses or signs of current abscess however there is some tenderness over the right mandibular region CARDIOVASCULAR: Normal S1, S2. Bradycardic. Regular rhythm. No clicks rubs or murmurs RESPIRATORY: Clear vesicular breath sounds bilaterally with good respiratory effort. No wheezes, rhonchi, or rales ABDOMINAL: Soft, nondistended. Mild tenderness diffusely. No rebound tenderness of guarding. Normoactive bowel sounds throughout. EXTREMITIES: No edema. Full and equal pulses in bilaterally upper and lower extremities NEUROLOGICAL: No focal neurological deficits PSYCHOLOGICAL: Mood and affect appear appropriate LABORATORY DATA, IMAGING STUDIES, MICROBIOLOGY: Please see below. DVT prophylaxis ordered?: Lovenox ASSESSMENT AND PLAN: Patient is a 40 year old male admitted to [facility] for complaint of intractable nausea and vomiting. PROBLEMS: 1. Intractable Nausea and vomiting likely 2/2 acute gastroenteritis likely viral -Patient had presented with intractable vomiting. He states he did have some diarrhea as well. His symptoms are consistent with likely viral gastroenteritis although patient does use marijuana/CBD and therefore hyperemesis from marijuana use can not be completely ruled out -Patient was advanced to clear liquids yesterday. He tolerated diet and his diet was advanced. Unfortunately he was unable to tolerate and developed nausea and vomiting. -Patient has been receiving Zofran and Phenergan with continued nausea and vomiting -Will start protonix daily -Will give 10mg Reglan -If patients nausea/vomiting continues or he develops worsening abdominal pain will consider repeat imaging 2. Fever -Patient has had two documented fevers of 100.9 and 100.2, and 100.6 -He is not tachycardic, WBC continues to trend down to 10.0 today, CRP < 0.30 making sepsis unlikely at this point -1 Set of blood cultures is negative. 2nd set is pending -Patient had mentioned a recent dental infection at which he had noticed drainage from his tooth. This could be the source of his fever. Given his current nausea and vomiting will administer IV clindamycin for a total of 7 days -GI panel is pending 3. Bradycardia -Patient has been noted to be bradycardic on several occasions. EKG performed today demonstrated sinus rhythm. There have been no pauses on telemetry. Patients heart rate does increase appropriately with physical exertion. Patient is likely bradycardic at baseline 4. Tobacco abuse -Nicotine patch 5. DVT prophylaxis -Lovenox DISPOSITION: Discharge is pending patient ability to tolerate PO Attending attestation: I evaluated and examined the patient in person; I discussed the care with Re sident in detail and agree with the plan above. VS, I&O, 24H, Fishbone Vital Signs/I&O Vital Signs Date Time Temp Pulse Resp B/P (MAP) Pulse Ox O2 Delivery O2 Flow Rate FiO2 02/21/20 14:00 98.5 43 17 152/90 (110) 100 Room Air I&O- Last 24 Hours up to 6 AM 02/21/20 06:00 Intake Total 2170 ml Output Total 2250 ml Balance -80 ml Laboratory Data 24H LABS Laboratory Tests 2 02/21/20 05:27: Nucleated Red Blood Cells % (auto) 0.0, Anion Gap 5L, Glomerular Filtration Rate > 60.0, Calcium Level 9.0, Magnesium Level 1.8, Total Bilirubin 0.8#, Aspartate Amino Transf (AST/SGOT) 14, Alanine Aminotransferase (ALT/SGPT) 19, Alkaline Phosphatase 68, Total Protein 6.5, Albumin 3.8, Albumin/Globulin Ratio 1.4 CBC/BMP Laboratory Tests 02/21/20 05:27 Microbiology Microbiology 02/20/20 Blood Culture, Received Pending 02/20/20 Blood Culture - Preliminary, Resulted No growth after 24 hours . All specim... JOANNA TORRES DO Feb 21, 2020 16:45 LIBERTY BOWENS MD Feb 23, 2020 23:49
[2020-02-21] MEDS: D5W/0.45% SODIUM CHLORIDE 1,000 ML IV SCH (18:03)
[2020-02-21] MEDS: KETOROLAC TROMETHAMINE 10 MG TAB PO PRN (20:49)
[2020-02-21 22:00] VITALS: BP 143/77
[2020-02-22 03:45] VITALS: BP 138/77
[2020-02-22] MEDS: ACETAMINOPHEN TAB 650MG DOSE (2X325MG) PO PRN (04:12)
[2020-02-22 06:00] VITALS: BP 133/76
[2020-02-22 06:01] LABS: HEMATOCRIT 35.8 % (42.0-52.0); HEMOGLOBIN 12.6 g/dl (13.5-17.5); MEAN CORPUSCULAR HEMOGLOBIN 31.6 pg (27.0-33.0); MEAN CORPUSCULAR HGB CONC 35.2 g/dl (32.0-36.5); MEAN CORPUSCULAR VOLUME 89.7 fl (80.0-96.0); PLATELET COUNT, AUTOMATED 166 10^3/uL (150-450); RED BLOOD COUNT 3.99 10^6/uL (4.30-6.10); WHITE BLOOD COUNT 9.9 10^3/uL (4.0-10.0)
[2020-02-22] MEDS: CLINDAMYCIN 600 MG in IV 1 EA IV SCH ×2 (06:10→14:53)
[2020-02-22] MEDS: D5W/0.45% SODIUM CHLORIDE 1,000 ML IV SCH (06:10)
[2020-02-22 06:33] LABS: ALBUMIN 3.5 GM/DL (3.2-5.2); ALT/SGPT 27 U/L (12-78); BILIRUBIN,TOTAL 0.7 MG/DL (0.2-1.0); BLOOD UREA NITROGEN 3 MG/DL (7-18); CALCIUM LEVEL 8.6 MG/DL (8.5-10.1); CARBON DIOXIDE LEVEL 26 MEQ/L (21-32); CHLORIDE LEVEL 110 MEQ/L (98-107); CREATININE FOR GFR 0.74 MG/DL (0.70-1.30); GLOMERULAR FILTRATION RATE > 60.0 (>60); GLUCOSE, FASTING 101 MG/DL (70-100); POTASSIUM SERUM 3.5 MEQ/L (3.5-5.1); SODIUM LEVEL 144 MEQ/L (136-145); TOTAL PROTEIN 6.2 GM/DL (6.4-8.2)
--- NOTE | 2020-02-22 07:40 | ECGEPIP ---
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
--- NOTE | 2020-02-22 07:41 | ECGEPIP ---
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
[2020-02-22] MEDS: NICOTINE 21MG/24HR 1 EA TRANSDERMAL TD SCH (08:47)
[2020-02-22] MEDS: ENOXAPARIN 40MG/0.4ML SYRINGE (J1650 PER 10MG) SC SCH (08:47)
[2020-02-22] MEDS: ONDANSETRON 4MG/2ML VIAL IV PRN (08:47)
[2020-02-22] MEDS ORDERED: PANTOPRAZOLE 40MG VIAL (C9113 PER 1) IV SCH (09:00)
[2020-02-22 09:34] LABS: C REACTIVE PROTEIN QUANTITATIV < 0.30 MG/DL (0.00-0.30)
--- NOTE | 2020-02-22 11:55 | IPNPDOC ---
Date Seen The patient was seen on 02/22/20. Progress Note SUBJECTIVE: Patient was seen and examined this morning. He has increased nausea and vomiting yesterday. He was unable to tolerate his diet and was given IV fluids overnight. Patient had received Reglan which helped improve his nausea and vomiting. Since last night he states that he feels better and is currently not nauseas. He has continued to spike fevers overnight. He denies any increased abdominal pain currently OBJECTIVE PHYSICAL EXAMINATION: VITAL SIGNS: Please see below. GENERAL: Awake, alert, and oriented. Appears in no acute distress. Lying comfortably in bed HEENT: Atraumatic, normocephalic. Eyes are nonicteric. trachea is midline. Patient has overall poor dentition. Continued mild tenderness over the right mandibular region CARDIOVASCULAR: Normal S1, S2. Bradycardic. Regular rhythm. No clicks rubs or murmurs RESPIRATORY: Clear vesicular breath sounds bilaterally with good respiratory effort. No wheezes, rhonchi, or rales ABDOMINAL: Soft, nondistended. Nontender. No rebound tenderness of guarding. Normoactive bowel sounds throughout. EXTREMITIES: No edema. Full and equal pulses in bilaterally upper and lower extremities NEUROLOGICAL: No focal neurological deficits PSYCHOLOGICAL: Mood and affect appear appropriate LABORATORY DATA, IMAGING STUDIES, MICROBIOLOGY: Please see below. DVT prophylaxis ordered?: Lovenox ASSESSMENT AND PLAN: Patient is a 40 year old male admitted to [facility] for complaint of intractable nausea and vomiting. CT demonstrating likely gastroenteritis however has developed intermittent fevers PROBLEMS: 1. Intractable Nausea and vomiting likely 2/2 acute gastroenteritis likely viral -Patient had presented with intractable vomiting. He states he did have some diarrhea as well. His symptoms are consistent with likely viral gastroenteritis although patient does use marijuana/CBD and therefore hyperemesis from marijuana use can not be completely ruled out -Patient was advanced to clear liquids yesterday. He tolerated diet and his diet was advanced. Unfortunately he was unable to tolerate and developed nausea and vomiting. -Patient has been receiving Zofran and Phenergan with continued nausea and vomiting -Will start protonix daily -Patient received one dose of reglan yesterday which appeared to have helped -The patients N/V and fevers may be secondary to opioid withdraw. He states that he has not taken any opioids for several months however his urine tox was positive. His positive reaction to reglan may suggest that his symptoms are related to opioid withdraw -Will advance diet today 2. Fever -Patient has continued fevers Tmax of 101.2 overnight -He is not tachycardic, WBC continues to trend down to 10.0 today, CRP < 0.30 making sepsis unlikely at this point. Repeat CRP was again < 0.30 -2 sets of blood cultures have been negative -Patient had mentioned a recent dental infection at which he had noticed drainage from his tooth. This could be the source of his fever. Given his current nausea and vomiting will administer IV clindamycin for a total of 7 days -GI panel is pending -Patients fevers may be secondary to opioid withdraw. -If patient spikes a fever will repeat with rectal temperature to assure accuracy as patient has no other signs of infection -If confirmed fever will repeat blood cultures x3 3. Bradycardia -Patient has been noted to be bradycardic on several occasions. EKG performed today demonstrated sinus rhythm. There have been no pauses on telemetry. Patie nts heart rate does increase appropriately with physical exertion. Patient is likely bradycardic at baseline 4. Tobacco abuse -Nicotine patch 5. DVT prophylaxis -Lovenox DISPOSITION: Patient to be made inpatient status given continued fevers without source. D/C once afebrile for 24 hours ADDENDUM: Attending Physician was notified by nursing staff and PFS that patient had requested to leave Against Medical Advice. The patient was informed of risks of leaving against medical advice including the risk of . Patient voiced understanding and left against medical advice. Attending attestation: I evaluated and examined the patient in person; I discussed the care with Resident in detail and agree with the plan above. VS, I&O, 24H, Fishbone Vital Signs/I&O Vital Signs Date Time Temp Pulse Resp B/P (MAP) Pulse Ox O2 Delivery O2 Flow Rate FiO2 02/22/20 06:00 99.3 50 20 133/76 (95) 98 Room Air I&O- Last 24 Hours up to 6 AM 02/22/20 06:00 Intake Total 1390 ml Output Total 2975 ml Balance -1585 ml Laboratory Data 24H LABS Laboratory Tests 2 02/22/20 05:38: Nucleated Red Blood Cells % (auto) 0.0, Anion Gap 8, Glomerular Filtration Rate > 60.0, Calcium Level 8.6, Total Bilirubin 0.7, Aspartate Amino Transf (AST/SGOT) 11, Alanine Aminotransferase (ALT/SGPT) 27, Alkaline Phosphatase 65, C-Reactive Protein, Quantitative < 0.30, Total Protein 6.2L, Albumin 3.5, Albumin/Globulin Ratio 1.3 CBC/BMP Laboratory Tests 02/22/20 05:38 Microbiology Microbiology 02/20/20 Blood Culture - Preliminary, Resulted No growth after 24 hours . All specim... 02/20/20 Blood Culture - Preliminary, Resulted No growth after 24 hours . All specim... JOANNA TORERS DO Feb 22, 2020 11:55 LIBERTY BOWENS MD Feb 24, 2020 00:21
[2020-02-22] MEDS ORDERED: PILL CUTTER 1 EACH XX PRN (13:00)
[2020-02-22] MEDS ORDERED: tiZANidine 4 MG TAB PO PRN (13:00)
[2020-02-22 14:00] VITALS: BP 157/67
[2020-02-22] MEDS: KETOROLAC TROMETHAMINE 10 MG TAB PO PRN (14:54)
[2020-03-12] MEDS ORDERED: NICO2GUM50 PO (14:14)
[2020-03-12] MEDS ORDERED: MULTCAP PO (14:14)
[2020-03-12] MEDS ORDERED: PROBCAP14 PO (14:14)
[2020-03-12] MEDS ORDERED: PANT40TA29 PO (14:14)
== END 2020-02-22 16:55 | disposition left against medical advice (07) ==
LOC: M ED 20:43 → EDBD 20:43 → EEVIPCON 02-20 03:01 → M ED INP 02-20 03:01 → ENRESERV 02-20 03:18 → M MSPAV 02-20 03:56
PROVIDERS: ADMIT Internal Medicine; ATTEND Internal Medicine
DX: K52.9 Noninfective gastroenteritis and colitis, unspecified (principal); R63.4 Abnormal weight loss; J30.9 Allergic rhinitis, unspecified; R00.1 Bradycardia, unspecified; R50.9 Fever, unspecified; F12.10 Cannabis abuse, uncomplicated; F17.218 Nicotine dependence, cigarettes, with other nicotine-induced disorders; Z88.5 Allergy status to narcotic agent; Z79.899 Other long term (current) drug therapy
CPT/HCPCS: 36415; 74021; 74177; 80048; 80053; 80076; 80307; 81001; 82150; 82550; 82553; 83690; 83735; 85025; 85027; 86140; 87040; 87641; 93005; 96361; 96365; 96366; 96372; 96375; 96376; 99285; C9113; J1650; J2405; J2765; J3370; Q9967

== ENCOUNTER → 2020-03-16 | Outpatient (CLI) | payer OTHER, MEDICAID ==
[~2020-03-16] MED LIST changes: -ASCO250T20 PO; -GABA-282; +GABA-843; +GABA-845 PO; +LEVOTAB10 PO; +MULTCAP PO; +NICO2GUM50 PO; +OMEP-218 PO; +ONDA-83 PO; +PANT40TA3 PO; +PROBCAP14 PO; +TIZA2TA PO; +VITA1TAB23 PO; +ZOFR4TAB16 PO
== END ==
LOC: M LABSMTC 10:08
PROVIDERS: ATTEND Anesthesiology
DX: Z01.818 Encounter for other preprocedural examination (principal); Z11.59 Encounter for screening for other viral diseases
CPT/HCPCS: C9803; U0003

== ENCOUNTER 2020-03-19 14:37 | Day surgery (SDC) | payer OTHER ==
[~2020-03-19] VITALS: Ht 175.3 cm; Wt 61.9 kg
[~2020-03-19 14:37] MED LIST changes: +ASCO250T20 PO; +PANT40TA29 PO; -PANT40TA3 PO; -VITA1TAB23 PO
--- NOTE | 2020-03-19 16:22 | ROOR ---
Patient Name: Jose Michelle Procedure Date: 03/19/2020 4:04 PM Date of : 1980 Age: 40 Room: [facility] Gender: Male Note Status: Finalized Procedure: Upper GI endoscopy Indications: Abdominal pain, Heartburn, Nausea, Weight loss Providers: Chema DA SILVA MD Referring MD: Family Practice/Adult section [facility] Requesting Provider: Medicines: Monitored Anesthesia Care Complications: No immediate complications. Procedure: Pre-Anesthesia Assessment: - The heart rate, respiratory rate, oxygen saturations, blood pressure, adequacy of pulmonary ventilation, and response to care were monitored throughout the procedure. The Endoscope was introduced through the mouth, and advanced to the third part of duodenum. The upper GI endoscopy was accomplished without difficulty. The patient tolerated the procedure well. Findings: The esophagus was normal. The stomach was normal. The examined duodenum was normal. Biopsies were taken with a cold forceps in the gastric antrum for Helicobacter pylori testing. Several biopsies were obtained in the upper third of the esophagus and in the middle third of the esophagus with cold forceps for evaluation of eosinophilic esophagitis. Impression: - Normal esophagus. - Normal stomach. - Normal examined duodenum. - Biopsies were taken with a cold forceps for Helicobacter pylori testing. - Several biopsies were obtained in the upper third of the esophagus and in the middle third of the esophagus. Recommendation: - Observe patient's clinical course. - Return to physician real estate executive assistant as previously scheduled. - For weight loss would suggest proceeding with a colonoscopy. (to be discussed) Chema Da Silva MD Chema DA SILVA MD 03/19/2020 4:21:56 PM Electronically signed by Chema DA SLIVA MD Number of Addenda: 0 Note Initiated On: 03/19/2020 4:04 PM Estimated Blood Loss: Estimated blood loss: none.
[2020-03-19] MEDS ORDERED: propofoL 200 MG/20 ML VIAL As Ordered ONE (16:28)
[2020-03-19] MEDS ORDERED: LIDOCAINE 2% 100MG/5ML SDV (FOR ANES.) As Ordered ONE (16:28)
[2020-03-19 16:40] VITALS: BP 122/56
[2020-03-20] MEDS ORDERED: NS 1,000 ML IV ONE (07:00)
== END 2020-03-19 16:59 | disposition home or self-care (01) ==
LOC: M OPP 14:37
PROVIDERS: ATTEND Internal Medicine Gastroenterology
DX: R10.9 Unspecified abdominal pain (principal); R11.2 Nausea with vomiting, unspecified; R63.4 Abnormal weight loss

== ENCOUNTER → 2020-03-22 | Outpatient (REF) | payer OTHER, MEDICAID ==
[~2020-03-22] MED LIST changes: -ASCO250T20 PO; -PANT40TA29 PO; +PANT40TA3 PO; +VITA1TAB23 PO
[2020-03-22 12:37] LABS: BASO % 0.5 % (0.0-1.0); EOS # 0.2 10^3/uL (0.0-0.5); EOS % 2.3 % (0.0-3.0); HEMATOCRIT 41.8 % (42.0-52.0); HEMOGLOBIN 14.1 g/dl (13.5-17.5); LYMPH % 24.9 % (24.0-44.0); MEAN CORPUSCULAR HEMOGLOBIN 31.8 pg (27.0-33.0); MEAN CORPUSCULAR HGB CONC 33.7 g/dl (32.0-36.5); MEAN CORPUSCULAR VOLUME 94.1 fl (80.0-96.0); MONO # 0.6 10^3/uL (0.0-0.8); MONO % 6.9 % (0.0-5.0); NEUTROPHILS # 5.3 10^3/uL (1.5-8.5); PLATELET COUNT, AUTOMATED 197 10^3/uL (150-450); RED BLOOD COUNT 4.44 10^6/uL (4.30-6.10); WHITE BLOOD COUNT 8.1 10^3/uL (4.0-10.0)
[2020-03-22 12:52] LABS: TESTOSTERONE 628 NG/DL (241-827); TOTAL 25(OH) VITAMIN D 34.5 NG/ML (30.0-100.0); TOTAL T3 110.5 NG/DL (60.0-181.0)
[2020-03-22 13:06] LABS: ALBUMIN 4.4 GM/DL (3.2-5.2); ALT/SGPT 19 U/L (12-78); BILIRUBIN,TOTAL 0.8 MG/DL (0.2-1.0); BLOOD UREA NITROGEN 9 MG/DL (7-18); CALCIUM LEVEL 9.4 MG/DL (8.5-10.1); CARBON DIOXIDE LEVEL 28 MEQ/L (21-32); CHLORIDE LEVEL 106 MEQ/L (98-107); CHOLESTEROL LEVEL 152 MG/DL (<200); CHOLESTEROL RISK RATIO 2.412 (<5); CREATININE FOR GFR 0.82 MG/DL (0.70-1.30); GLOMERULAR FILTRATION RATE > 60.0 (>60); GLUCOSE, FASTING 148 MG/DL (70-100); HDL CHOLESTEROL 63 MG/DL (>40); LDL CHOLESTEROL 82 MG/DL (<100); NON-HDL-C 89 MG/DL; POTASSIUM SERUM 4.1 MEQ/L (3.5-5.1); SODIUM LEVEL 139 MEQ/L (136-145); THYROXINE (T4) 8.5 UG/DL (4.5-12.0); TOTAL PROTEIN 7.5 GM/DL (6.4-8.2); TRIGLYCERIDES LEVEL 37 MG/DL (<150)
[2020-03-22 14:13] LABS: HEMOGLOBIN A1c 5.6 %
[2020-03-22 15:36] LABS: MONO SCRN NEGATIVE (NEGATIVE)
[2020-03-23 08:16] LABS: THYROID PEROXIDASE ANTIBODY < 28.0 U/ML (<60.0)
[2020-03-23 14:09] LABS: EBV AB TO NUCLEAR ANTIGEN >600.0 U/mL (0.0-17.9); EBV VIRAL CAPSID AG IgG >600.0 U/mL (0.0-17.9); EBV VIRAL CAPSID AG IgM <36.0 U/mL (0.0-35.9)
== END ==
LOC: M LAB REF 11:34
PROVIDERS: ATTEND Family Medicine
DX: R53.81 Other malaise (principal)

== ENCOUNTER → 2020-07-06 | Outpatient (REF) | payer OTHER ==
[~2020-07-06] MED LIST changes: +ASCO250T20 PO; +PANT40TA29 PO; -PANT40TA3 PO; -VITA1TAB23 PO
== END ==
LOC: M LAB REF 16:27
PROVIDERS: ATTEND Physician Assistant
DX: Z20.828 Contact with and (suspected) exposure to other viral communicable diseases (principal); J02.9 Acute pharyngitis, unspecified

== ENCOUNTER → 2020-10-01 | Outpatient (CLI) | payer SELFPAY | LOC: M LABSMTC 12:54 | PROVIDERS: ATTEND Pediatrics | DX: Z20.822 Contact with and (suspected) exposure to COVID-19 (principal) ==

== ENCOUNTER → 2021-06-11 | Outpatient (CLI) | payer OTHER ==
[~2021-06-11] MED LIST changes: +GABA-282; +GABA-283 PO; -GABA-843; -GABA-845 PO; -OXYC1TAB15 PO; +OXYC7.5T3 PO
--- NOTE | 2021-06-11 17:00 | REP ---
INDICATION: INGUINAL HERNIA. COMPARISON: None. TECHNIQUE: Real-time sonographic evaluation of the inguinal region bilaterally FINDINGS: The inguinal regions are normal. There is no evidence for hernia. There is no evidence of a mass. IMPRESSION: Negative ultrasound examination does not rule out an inguinal hernia since they are known to spontaneously reduce. <Electronically signed by Arie Boyd > 06/11/21 [id number]
== END ==
LOC: M RAD 16:25
PROVIDERS: ATTEND Surgery
DX: K40.00 Bilateral inguinal hernia, with obstruction, without gangrene, not specified as recurrent (principal)

== ENCOUNTER → 2021-11-05 | Outpatient (CLI) | payer OTHER ==
[~2021-11-05] MED LIST changes: +OMEP-173 PO; -OMEP-218 PO
== END ==
LOC: M RAD 13:43
PROVIDERS: ATTEND Nurse Practitioner Women's Health
DX: N50.819 Testicular pain, unspecified (principal)

== ENCOUNTER 2022-01-25 15:56 | Emergency (ER) | payer OTHER ==
[~2022-01-25] VITALS: Ht 175.3 cm; Wt 76.2 kg
[2022-01-25] MEDS ORDERED: BUPR75TA5 PO (16:01)
[2022-01-25] MEDS ORDERED: KETOROLAC 30 MG/ML 1ML VIAL IM ONE (17:15)
[2022-01-25] MEDS ORDERED: AMOX875T2 PO (17:18)
[2022-01-25 17:30] VITALS: BP 148/81
== END 2022-01-25 17:32 | disposition home or self-care (01) ==
LOC: M ED 15:56
DX: S63.501A Unspecified sprain of right wrist, initial encounter (principal); X50.0XXA Overexertion from strenuous movement or load, initial encounter; Y92.9 Unspecified place or not applicable; Y93.9 Activity, unspecified; Y99.0 Civilian activity done for income or pay; K04.7 Periapical abscess without sinus; Z88.6 Allergy status to analgesic agent; Z79.899 Other long term (current) drug therapy

== ENCOUNTER 2022-04-14 00:08 | Emergency (ER) | payer OTHER ==
[~2022-04-14] VITALS: Ht 175.3 cm; Wt 75.4 kg
[2022-04-14 00:08] VITALS: BP 137/88
[~2022-04-14 00:08] MED LIST changes: +AMOX875T2 PO; +BUPR75TA5 PO
[2022-04-15] MEDS ORDERED: CEPH500C PO (18:03)
== END 2022-04-14 00:43 | disposition left against medical advice (07) ==
LOC: M ED 00:08
DX: Z53.21 Procedure and treatment not carried out due to patient leaving prior to being seen by health care provider (principal)

== ENCOUNTER 2022-04-15 15:07 | Emergency (ER) | payer OTHER ==
[~2022-04-15] VITALS: Ht 175.3 cm; Wt 75.1 kg
[2022-04-15] MEDS ORDERED: LIDOCAINE 1% MDV 20ML VIAL SC ONE (17:45)
[2022-04-15] MEDS ORDERED: BOOSTRIX/ADACEL VACCINE (DIPHTH/PERTUSS/ACELL/TETANUS) 0.5ML SYR IM ONE (17:45)
[2022-04-15] MEDS ORDERED: CEPH500C PO (18:03)
[2022-04-15 18:18] VITALS: BP 140/72
== END 2022-04-15 18:24 | disposition home or self-care (01) ==
LOC: M ED 15:07
DX: S60.552A Superficial foreign body of left hand, initial encounter (principal); W45.8XXA Other foreign body or object entering through skin, initial encounter; F17.200 Nicotine dependence, unspecified, uncomplicated; Z88.6 Allergy status to analgesic agent; Z23 Encounter for immunization; Z79.899 Other long term (current) drug therapy

== ENCOUNTER → 2022-11-25 | Outpatient (REF) | payer OTHER ==
[~2022-11-25] MED LIST changes: +CEPH500C PO; -OXYC-403 PO; +OXYC-673 PO
[2022-11-25 17:26] LABS: BASO # 0.1 10^3/uL (0.0-0.2); BASO % 0.7 % (0.0-1.0); EOS # 0.3 10^3/uL (0.0-0.5); EOS % 3.4 % (0.0-3.0); HEMATOCRIT 48.4 % (42.0-52.0); LYMPH # 1.9 10^3/uL (1.5-5.0); LYMPH % 23.9 % (24.0-44.0); MEAN CORPUSCULAR HEMOGLOBIN 30.7 pg (27.0-33.0); MEAN CORPUSCULAR HGB CONC 33.1 g/dl (32.0-36.5); MEAN CORPUSCULAR VOLUME 92.9 fl (80.0-96.0); MONO # 0.6 10^3/uL (0.0-0.8); MONO % 7.7 % (2.0-8.0); NEUTROPHILS # 5.1 10^3/uL (1.5-8.5); NEUTROPHILS % 63.6 % (36.0-66.0); PLATELET COUNT, AUTOMATED 216 10^3/uL (150-450); RED BLOOD COUNT 5.21 10^6/uL (4.30-6.10)
[2022-11-25 17:46] LABS: LIPASE 38 U/L (12-53)
[2022-11-25 17:53] LABS: ALKALINE PHOSPHATASE 90 U/L (46-116); ALT/SGPT 71 U/L (7.0-40); AST/SGOT 44 U/L (<34); BILIRUBIN,TOTAL 0.3 MG/DL (0.3-1.2); BLOOD UREA NITROGEN 13 MG/DL (9-23); CALCIUM LEVEL 9.5 MG/DL (8.5-10.1); CARBON DIOXIDE LEVEL 29 MMOL/L (20-31); CHLORIDE LEVEL 105 MMOL/L (98-107); CREATININE FOR GFR 0.89 MG/DL (0.70-1.30); GLOMERULAR FILTRATION RATE > 60.0 (>60); GLUCOSE, FASTING 92 MG/DL (60-100); POTASSIUM SERUM 4.6 MMOL/L (3.5-5.1); SODIUM LEVEL 141 MMOL/L (136-145); TOTAL PROTEIN 7.2 G/DL (5.7-8.2)
== END ==
LOC: M LAB REF 16:22
PROVIDERS: ATTEND Pediatrics
DX: R10.9 Unspecified abdominal pain (principal)

== ENCOUNTER → 2022-12-04 | Outpatient (REF) | payer OTHER ==
[2022-12-04 19:46] LABS: ALKALINE PHOSPHATASE 91 U/L (46-116); ALT/SGPT 100 U/L (7.0-40); AST/SGOT 49 U/L (<34); BILIRUBIN,DIRECT 0.1 MG/DL (<0.4); BILIRUBIN,TOTAL 0.4 MG/DL (0.3-1.2); FERRITIN 54.6 NG/ML (10.5-307.3); TOTAL PROTEIN 6.7 G/DL (5.7-8.2)
[2022-12-04 19:49] LABS: HEPATITIS B SURFACE ANTIBODY NEGATIVE (POSITIVE)
[2022-12-04 20:02] LABS: HEPATITIS B SURFACE ANTIGEN NEGATIVE (NEGATIVE)
[2022-12-04 20:21] LABS: HEPATITIS C VIRUS ABY INDEX < 0.0 INDEX (<0.8)
== END ==
LOC: M LAB REF 16:38
PROVIDERS: ATTEND Pediatrics
DX: R74.01 Elevation of levels of liver transaminase levels (principal)

== ENCOUNTER → 2022-12-19 | Outpatient (REF) | payer OTHER ==
[2022-12-19 18:23] LABS: HEPATITIS B SURFACE ANTIBODY NEGATIVE (POSITIVE)
[2022-12-19 18:35] LABS: HEPATITIS B SURFACE ANTIGEN NEGATIVE (NEGATIVE)
== END ==
LOC: M LAB REF 16:26
PROVIDERS: ATTEND Pediatrics
DX: R76.8 Other specified abnormal immunological findings in serum (principal)

== ENCOUNTER → 2023-01-20 | Outpatient (CLI) | payer OTHER | LOC: M LAB 18:29 | PROVIDERS: ATTEND Pediatrics | DX: R76.8 Other specified abnormal immunological findings in serum (principal) ==

== ENCOUNTER 2023-08-25 09:31 | Inpatient (IN) | payer OTHER ==
[~2023-08-25] VITALS: Ht 175.3 cm; Wt 77.3 kg
[~2023-08-25 09:31] MED LIST changes: +DIAZ-654 PO; -GABA-283 PO; +GABA-284 PO; -VALI10TA PO
[2023-08-25] MEDS ORDERED: NS 1,000 ML IV ONE (12:10)
[2023-08-25] MEDS ORDERED: HYDROMORPHONE HCL 0.5 MG/ 0.5 ML SYRINGE IV PRN (12:10)
[2023-08-25] MEDS ORDERED: ONDANSETRON 4MG 2ML VIAL IV ONE (12:10)
[2023-08-25] MEDS ORDERED: ISOVUE-370 76% 100ML VIAL As Ordered ONE (12:20)
[2023-08-25 12:30] LABS: BASO % 0.3 % (0.0-1.0); EOS # 0.1 10^3/uL (0.0-0.5); EOS % 0.5 % (0.0-3.0); HEMATOCRIT 46.5 % (42.0-52.0); HEMOGLOBIN 16.5 g/dl (13.5-17.5); LYMPH # 1.2 10^3/uL (1.5-5.0); LYMPH % 10.9 % (24.0-44.0); MEAN CORPUSCULAR HEMOGLOBIN 31.5 pg (27.0-33.0); MEAN CORPUSCULAR HGB CONC 35.5 g/dl (32.0-36.5); MEAN CORPUSCULAR VOLUME 88.7 fl (80.0-96.0); MONO # 1.2 10^3/uL (0.0-0.8); MONO % 10.9 % (2.0-8.0); NEUTROPHILS # 8.2 10^3/uL (1.5-8.5); PLATELET COUNT, AUTOMATED 256 10^3/uL (150-450); RED BLOOD COUNT 5.24 10^6/uL (4.30-6.10); WHITE BLOOD COUNT 10.6 10^3/uL (4.0-10.0)
[2023-08-25 12:46] LABS: ALBUMIN 3.7 G/DL (3.2-5.2); BILIRUBIN,DIRECT 0.3 MG/DL (<0.4); BILIRUBIN,TOTAL 0.8 MG/DL (0.3-1.2); TOTAL PROTEIN 6.9 G/DL (5.7-8.2)
[2023-08-25 13:41] LABS: RSV AMPLIFICATION NEGATIVE (NEGATIVE)
[2023-08-25] MEDS: LR 1,000 ML IV SCH (15:14)
[2023-08-25] MEDS ORDERED: ZINC1CAP2 PO (17:16)
[2023-08-25] MEDS ORDERED: VITA500C24 PO (17:17)
[2023-08-25] MEDS ORDERED: VITMTA PO (17:22)
[2023-08-25] MEDS ORDERED: HOME MED LIST COMPLETE! XX SCH (17:35)
[2023-08-26] MEDS: HYDROMORPHONE HCL 0.5 MG/ 0.5 ML SYRINGE IV PRN ×3 (01:43→21:41)
[2023-08-26] MEDS: LR 1,000 ML IV SCH ×3 (01:43→21:40)
[2023-08-26 06:09] LABS: HEMATOCRIT 40.9 % (42.0-52.0); MEAN CORPUSCULAR HEMOGLOBIN 31.4 pg (27.0-33.0); MEAN CORPUSCULAR VOLUME 89.7 fl (80.0-96.0); PLATELET COUNT, AUTOMATED 209 10^3/uL (150-450); RED BLOOD COUNT 4.56 10^6/uL (4.30-6.10); WHITE BLOOD COUNT 6.4 10^3/uL (4.0-10.0)
[2023-08-26 06:18] LABS: HEMOGLOBIN 14.3 g/dl (13.5-17.5)
[2023-08-26 06:37] LABS: BLOOD UREA NITROGEN 11 MG/DL (9-23); CALCIUM LEVEL 8.5 MG/DL (8.5-10.1); CARBON DIOXIDE LEVEL 29 MMOL/L (20-31); CHLORIDE LEVEL 106 MMOL/L (98-107); CREATININE FOR GFR 0.79 MG/DL (0.70-1.30); GLOMERULAR FILTRATION RATE > 60.0 (>60); GLUCOSE, FASTING 96 MG/DL (60-100); MAGNESIUM LEVEL 1.8 MG/DL (1.8-2.4); POTASSIUM SERUM 4.2 MMOL/L (3.5-5.1); SODIUM LEVEL 139 MMOL/L (136-145)
[2023-08-26] MEDS: PANTOPRAZOLE 40MG VIAL IV SCH (08:15)
[2023-08-26] MEDS: ENOXAPARIN 40MG/0.4ML SYRINGE (J1650 PER 10MG) SC SCH (08:17)
[2023-08-26 18:05] VITALS: BP 126/86; TEMP 98.6; O2SAT 97
[2023-08-26 20:40] VITALS: BP 152/100; TEMP 97.5; O2SAT 96
[2023-08-26] MEDS ORDERED: ONDANSETRON 4MG 2ML VIAL IV PRN (21:15)
[2023-08-27 05:40] VITALS: BP 155/99; TEMP 97.9; O2SAT 96
[2023-08-27] MEDS: LR 1,000 ML IV SCH (07:48)
[2023-08-27] MEDS: PANTOPRAZOLE 40MG VIAL IV SCH (09:28)
[2023-08-27] MEDS: ENOXAPARIN 40MG/0.4ML SYRINGE (J1650 PER 10MG) SC SCH (09:29)
[2023-08-27 14:00] VITALS: BP 136/65; TEMP 97.2; O2SAT 97
== END 2023-08-27 16:00 | disposition left against medical advice (07) | DRG 247 ==
LOC: M ED 09:31 → M ED INP 14:41 → M MS5PR 08-26 18:05
PROVIDERS: ADMIT Internal Medicine; ATTEND Internal Medicine
DX: K56.7 Ileus, unspecified (principal); G54.0 Brachial plexus disorders; E55.9 Vitamin D deficiency, unspecified; J30.9 Allergic rhinitis, unspecified; K21.9 Gastro-esophageal reflux disease without esophagitis; F17.200 Nicotine dependence, unspecified, uncomplicated; F34.1 Dysthymic disorder; Z96.642 Presence of left artificial hip joint; Z87.442 Personal history of urinary calculi; Z79.899 Other long term (current) drug therapy; Z88.5 Allergy status to narcotic agent

== ENCOUNTER 2023-09-27 01:12 | Emergency (ER) | payer OTHER ==
[~2023-09-27] VITALS: Ht 175.3 cm; Wt 79.0 kg
[~2023-09-27 01:12] MED LIST changes: +VITA500C24 PO; +VITMTA PO; +ZINC1CAP2 PO
[2023-09-27] MEDS ORDERED: ACET-861 PO (01:24)
[2023-09-27] MEDS ORDERED: KETOROLAC 60MG 2ML VIAL IM ONE (06:30)
[2023-09-27 06:35] VITALS: BP 137/90; TEMP 98; O2SAT 100
== END 2023-09-27 06:49 | disposition home or self-care (01) ==
LOC: M ED 01:12
DX: M25.511 Pain in right shoulder (principal); V00.221A Fall from sled, initial encounter; Y92.89 Other specified places as the place of occurrence of the external cause; Y93.23 Activity, snow (alpine) (downhill) skiing, snowboarding, sledding, tobogganing and snow tubing; Y99.9 Unspecified external cause status; F17.200 Nicotine dependence, unspecified, uncomplicated; Z79.899 Other long term (current) drug therapy; Z88.5 Allergy status to narcotic agent
CPT/HCPCS: 73030; 73060; 73080; 96372; 99284; J1885

== ENCOUNTER 2024-05-28 16:59 | Emergency (ER) | payer OTHER ==
[~2024-05-28] VITALS: Ht 177.8 cm; Wt 74.8 kg
[~2024-05-28 16:59] MED LIST changes: +ACET-861 PO
[2024-05-28] MEDS: IBUPROFEN 800 MG TAB PO ONE (18:11)
[2024-05-28 18:30] VITALS: BP 139/79; TEMP 97.6; O2SAT 95
== END 2024-05-28 18:40 | disposition home or self-care (01) ==
LOC: M ED 16:59
DX: U07.1 COVID-19 (principal); K21.9 Gastro-esophageal reflux disease without esophagitis; F12.10 Cannabis abuse, uncomplicated; F17.210 Nicotine dependence, cigarettes, uncomplicated; F15.10 Other stimulant abuse, uncomplicated; Z88.5 Allergy status to narcotic agent; Z79.1 Long term (current) use of non-steroidal anti-inflammatories (NSAID); Z79.810 Long term (current) use of selective estrogen receptor modulators (SERMs)

== ENCOUNTER → 2025-06-24 | Outpatient (RCR) ==
[~2025-06-24] MED LIST changes: +BUPR-363 PO; -BUPR75TA5 PO; -CLAR1CHW2 PO; -FLOM0.4C39 PO; +GABA-1172; -GABA-282; -IBUP-1022 PO; +IBUP600T42 PO; +LORA5TAB15 PO; +TAMS-18 PO
== END ==
LOC: M EMPSKH 06-04 06:19
PROVIDERS: ATTEND Family Medicine
DX: Z20.828 Contact with and (suspected) exposure to other viral communicable diseases (principal)